=== PATIENT | female | born 1990 | race Caucasian/White ===

== ENCOUNTER 2023-01-25 11:10 | Outpatient (CLI) | payer OTHER, SELFPAY ==
[2023-01-25 12:25] LABS: Hematocrit 41.4 % (37.0-47.0); Hemoglobin 14.2 g/dL (12.0-15.0); Mean Corpuscular HGB Conc 34.3 g/dl (32-36); Mean Corpuscular Hemoglobin 32.1 pg (26-34); Mean Corpuscular Volume 93.7 fl (80-100); Mean Platelet Volume 11.6 fl (7.4-10.4); Platelet Count Result 255 k/mm3 (150-375); Red Blood Count 4.42 M/mm3 (4.2-5.4); White Blood Count 10.2 K/mm3 (4.5-10.0)
[2023-01-25 12:38] LABS: Alanine Aminotransferase 23 U/L (6-35); Albumin Level 4.5 g/dL (3.5-5.1); Alkaline Phosphatase 59 U/L (38-126); Anion Gap 6 mmol/L (8-16); Aspartate Amino Transferase 18 U/L (14-36); Bilirubin,Total 0.3 mg/dL (0.2-1.3); Blood Urea Nitrogen 10 mg/dL (7-17); CRP < 0.5 mg/dL (<1.0); Calcium 9.6 mg/dL (8.4-10.2); Carbon Dioxide 28 mmol/L (22-30); Chloride 102 mmol/L (98-107); Estimated Glomerular Filt Rate > 60; Glucose 99 mg/dL (65-110); Lipase 51 U/L (23-300); Potassium 3.8 mmol/L (3.4-5.0); Sodium 136 mmol/L (137-145)
[2023-01-25 13:48] LABS: Thyroid Stimulating Hormone Reflex 0.139 uIU/mL (0.465-4.68)
[2023-01-25 13:53] LABS: Erythrocyte Sedimentation Rate 6 mm/hr (0-20)
[2023-01-25 14:54] LABS: Free T4 Free Thyroxine Reflex 1.46 ng/dL (0.78-2.19)
[2023-01-25 16:20] LABS: Total Triiodothyronine (T3) 1.14 NG/ML (0.97-1.69)
[2023-01-29 15:19] LABS: Hepatitis C RNA, Quant PCR <15 IU/mL
[2023-01-31 04:16] LABS: Immunoglobulin A 40 mg/dL (47-310); TTG IGA AB <1.0 U/mL (<15.0); Tissue Transglutaminase IgG Ab <1.0 U/mL (<15.0)
== END 2023-01-25 11:11 | disposition home or self-care (01) ==
PROVIDERS: PCP Family Medicine; Visit Provider Nurse Practitioner
DX: R11.2 Nausea with vomiting, unspecified (principal); R10.13 Epigastric pain; G89.29 Other chronic pain; R19.7 Diarrhea, unspecified; R76.8 Other specified abnormal immunological findings in serum; R63.4 Abnormal weight loss
CPT/HCPCS: 36415; 80053; 82784; 83690; 84439; 84443; 84480; 85027; 85652; 86140; 86364; 87522; 99212; G0463

== ENCOUNTER 2023-01-29 14:14 | Outpatient (NON) | payer OTHER, SELFPAY ==
[2023-02-04 22:36] LABS: Calprotectin, Stool 398 mcg/g
[2023-02-07 19:37] LABS: Pancreatic Elastase, Stool >500 mcg/g
== END 2023-01-29 14:15 | disposition home or self-care (01) ==
LOC: ANHLAB 14:15
PROVIDERS: PCP Family Medicine; Visit Provider Nurse Practitioner
DX: G89.29 Other chronic pain (principal); R10.13 Epigastric pain; R11.2 Nausea with vomiting, unspecified; R19.7 Diarrhea, unspecified; R63.4 Abnormal weight loss
CPT/HCPCS: 82653; 83993; 87045; 87177; 87209; 87427; 87449

== ENCOUNTER 2023-02-25 16:36 | Emergency (ER) | payer OTHER, SELFPAY ==
--- NOTE | ~2023-02-25 | XR_ITS ---
EXAMINATION: XR ribs RT 2V w CXR 2V Exam Date/Time: 02/25/2023 18:32 CDT HISTORY: right sided rib pain/pulled muscle Comparison: None available. RESULT: Lines, tubes, and devices: None. Lungs and pleura: Clear. Cardiothymic silhouette: Normal. Other: No acute osseous or upper abdominal finding. IMPRESSION: No acute cardiopulmonary process. No acute osseous finding in the right ribs. Reviewed, dictated and finalized at location K.
[2023-02-25 16:40] VITALS: BP 127/75; PULSE 64; RESP 16; TEMP 36.6; O2SAT 96
[2023-02-25 16:44] VITALS: BP 101/62; PULSE 84; RESP 18; TEMP 36.4; O2SAT 98
--- NOTE | 2023-02-25 17:54 | ECG_ITS ---
Measurements Intervals [place] Rate: 73 P: 53 [place]: 146 QRS: 78 QRSD: 79 T: 64 QT: 349 QTc: 385 Interpretive Statements SINUS RHYTHM WITH SINUS ARRHYTHMIA BASELINE ARTIFACT- I, II, III, AVR, V1-V3 NORMAL ECG NO PREVIOUS ECG AVAILABLE FOR COMPARISON Electronically Signed On 02-25-2023 20:38:39 CDT by Jas Renae D.O.
--- NOTE | 2023-02-25 18:32 | ED.GENADULT ---
HPI - General Adult General Chief complaint: Unspecified Stated complaint: right sided rib pain Time Seen by Provider: 02/25/23 16:55 Source: patient Mode of arrival: ambulatory Limitations: no limitations History of Present Illness HPI narrative: This is a 33 year old female that presents to the ER for right sided chest pain. Reports an episode of sharp chest pain. Does report moving yesterday and thinks she may have pulled a muscle. Her pain was relieved without intervention. Denies fever, cough, shortness of breath or lower extremity edema. Related Data Home Medications Medication Instructions Recorded Confirmed bupropion HCl 150 mg 24 hr tablet, 150 mg PO BID 12/21/22 01/25/23 extended release clonidine HCl 0.3 mg tablet 0.3 mg PO DAILY 12/21/22 01/25/23 lamotrigine 100 mg tablet 100 mg PO DAILY 12/21/22 01/25/23 trazodone 150 mg tablet 150 mg PO QHS PRN Insomnia 12/21/22 01/25/23 albuterol sulfate 90 mcg/actuation 2 puff inhalation Q4H PRN 01/25/23 01/25/23 aerosol inhaler Shortness Of Breath clonazepam 0.5 mg tablet 0.5 mg PO BID PRN Anxiety 01/25/23 01/25/23 etonogestrel 0.12 mg-ethinyl 1 vag ring vaginal MONTHLY 01/25/23 01/25/23 estradiol 0.015 mg/24 hr vaginal ring (NuvaRing) methadone 40 mg soluble tablet 82 mg PO DAILY 01/25/23 01/25/23 sucralfate 1 gram tablet (Carafate) 1 g PO DAILY 01/25/23 01/25/23 Allergies Allergy/AdvReac Type Severity Reaction Status Date / Time Sulfa (Sulfonamide Allergy Mild Unknown Verified 02/25/23 16:50 Antibiotics) Review of Systems Review of Systems: CONSTITUTIONAL: Denies fever CARDIOVASCULAR: Reports chest/rib pain. Denies palpitations, or edema. RESPIRATORY: Denies cough or dyspnea. All systems reviewed & are unremarkable except as noted in HPI and below PMFSH Past Medical History Medical History (Updated 02/25/23 @ 19:21 by Kim Lucas PA-C) Abdominal pain, chronic, epigastric Diarrhea Hepatitis C antibody positive in blood History of methamphetamine abuse Marijuana abuse Methadone dependence Nausea and vomiting Weight loss Social History Social History Smoking packs per day: 0.5 Smoking cigarettes per day: 10.0 Years smoked: 15 Smoking pack-years: 7.50 Smoking status: Current every day smoker Tobacco type: cigarettes Substance use: former Substance use type: marijuana and methamphetamine Last use: daily Living arrangements: with family Spiritual care concerns: No Exam Narrative: GENERAL: Well-appearing, well-nourished, and in no acute distress. HEAD: Normocephalic, atraumatic. EYES: EOMI. CHEST: Clear to auscultation. No respiratory distress. No wheezes rales or rhonchi HEART: Regular rate and rhythm. No murmur heard. Normal peripheral pulses. ABDOMEN: Soft, nontender, nondistended, normal active bowel sounds. EXTREMITIES: Normal range of motion. No edema. SKIN: Warm, dry, no rash. NEURO: No focal deficits. Alert and oriented x3. PSYCH: Normal mood and affect Course Course Emergency Course: Patient was updated on work-up and agrees with plan of care Vital Signs Vital signs: Vital Signs Temperature 97.9 F 02/25/23 16:40 Pulse Rate 64 02/25/23 16:40 Respiratory Rate 16 02/25/23 16:40 Blood Pressure 127/75 02/25/23 16:40 Pulse Oximetry 96 02/25/23 16:40 Oxygen Delivery Room Air 02/25/23 16:40 Temperature 97.6 F 02/25/23 16:44 Pulse Rate 73 02/25/23 18:54 Respiratory Rate 18 02/25/23 18:54 Blood Pressure 114/79 02/25/23 18:54 Pulse Oximetry 97 02/25/23 18:54 Oxygen Delivery Room Air 02/25/23 16:44 Medical Decision Making [facility] Narrative Medical decision making narrative: Patient presents to the emergency department for right-sided rib/chest pain ongoing after moving yesterday. She is afebrile and nontoxic-appearing. Her vitals are stable. Oxygen saturation is normal on room air. CBC with mild leukocytosis to 13. Metabolic panel and li
[2023-02-25 18:54] VITALS: BP 114/79; PULSE 73; RESP 18; O2SAT 97
[2023-02-25 18:55] LABS: Basophils Percent Auto 0.3 % (0.2-1.2); Eosinophils Absolute Auto 0.1 K/mm3 (0-0.3); Hematocrit 40.6 % (37.0-47.0); Hemoglobin 13.8 g/dL (12.0-15.0); Immature Granulocyte Absolute 0.05 K/mm3 (0.00-0.031); Immature Granulocyte Percent A 0.4 % (0-0.5); Lymphocytes Absolute Auto 2.61 K/mm3 (0.9-3.2); Lymphocytes Percent Auto 20.1 % (18.3-44.2); Mean Corpuscular Hemoglobin 31.7 pg (26-34); Mean Corpuscular Volume 93.3 fl (80-100); Mean Platelet Volume 10.9 fl (7.4-10.4); Monocytes Absolute Auto 0.8 K/mm3 (0.1-0.6); Monocytes Percent Auto 5.9 % (2.6-8.5); Neutrophils Absolute Auto 9.4 K/mm3 (1.3-6.7); Neutrophils Percent Auto 72.3 % (45.5-73.1); Platelet Count Result 254 k/mm3 (150-375); Red Blood Count 4.35 M/mm3 (4.2-5.4); Red Cell Distribution Width 12.5 % (11.5-14.5)
[2023-02-25 19:09] LABS: Prothrombin Time 13.9 Seconds (11.1-14.7)
[2023-02-25 19:10] LABS: Partial Thromboplastin Time 28.3 SECONDS (22.3-36.8)
[2023-02-25 19:12] LABS: Alanine Aminotransferase 19 U/L (6-35); Albumin Level 4.4 g/dL (3.5-5.1); Alkaline Phosphatase 59 U/L (38-126); Anion Gap 6 mmol/L (8-16); Aspartate Amino Transferase 27 U/L (14-36); Bilirubin,Total 0.5 mg/dL (0.2-1.3); Blood Urea Nitrogen 15 mg/dL (7-17); Calcium 9.7 mg/dL (8.4-10.2); Carbon Dioxide 28 mmol/L (22-30); Chloride 103 mmol/L (98-107); Estimated CRCL calculation 67 ml/min; Estimated Glomerular Filt Rate > 60; Glucose 93 mg/dL (65-110); Lipase 52 U/L (23-300); Potassium 3.6 mmol/L (3.4-5.0); Sodium 137 mmol/L (137-145)
[2023-02-25 19:23] LABS: Troponin I < 0.012 ng/mL (0.000-0.034)
[2023-02-25 19:27] VITALS: BP 129/72; PULSE 77; RESP 15; TEMP 36.6; O2SAT 100
== END 2023-02-25 19:29 | disposition home or self-care (01) ==
PROVIDERS: Emergency Provider Physician Assistant; PCP Family Medicine
DX: R07.81 Pleurodynia (principal); F17.210 Nicotine dependence, cigarettes, uncomplicated
CPT/HCPCS: 36415; 71046; 71100; 80053; 81025; 83690; 84484; 85025; 85610; 85730; 93005; 99284

== ENCOUNTER 2023-03-11 15:11 | Emergency (ER) | payer OTHER, SELFPAY ==
--- NOTE | ~2023-03-11 | XR_ITS ---
EXAM: XR hand LT min 3V DATE: 03/11/2023 16:57 HISTORY: pain, DOG BITE to left distal 4th digit . COMPARISON: None available. FINDINGS: Normal mineralization. No fracture or dislocation. No lytic or blastic lesion. Joint space s are maintained. No erosion or periosteal change. Soft tissues within normal limits. IMPRESSION: No acute osseous finding in the left hand. Reviewed, dictated and finalized at location K.
--- NOTE | ~2023-03-11 | XR_ITS ---
EXAM: XR finger 4th RT min 2V DATE: 03/11/2023 15:51 HISTORY: dog bite to right 4th distal digit- best obtainable images . COMPARISON: None available. FINDINGS: Normal mineralization. No fracture or dislocation. No lytic or blastic lesion. Joint space s and physes are maintained. No erosion or periosteal change. Soft tissue irregularity over the anter ior aspect of the distal right digit. IMPRESSION: No acute osseous finding in the right fourth digit. Reviewed, dictated and finalized at location K.
[2023-03-11 15:20] VITALS: BP 104/53; PULSE 94; RESP 18; TEMP 37.3; O2SAT 100
[2023-03-11] MEDS: NAPROXEN 500 MG TABLET PO (16:37)
[2023-03-11] MEDS: HYDROcodone/acetaminophen (*CRX) 5-325 MG TABLET 1 TAB PO (16:37)
[2023-03-11] MEDS: TETANUS,DIPHTHERIA,AC PERTUSSIS ADULT (0.5 ML) BOOSTRIX IM (17:16)
--- NOTE | 2023-03-11 17:28 | ED.GENADULT ---
HPI - General Adult General Chief complaint: Animal Bite Stated complaint: dog bite - bilat hand Time Seen by Provider: 03/11/23 15:40 History of Present Illness HPI narrative: Mirela Damon is a 33 y/o female who presents today after breaking up a fight between her two dogs. She states her dogs are up to date on their shots but she has several small puncture/superficial cuts to both hands. Patient complains of severe pain to both of her hands and is very upset, she is not sure when her last Tdap was. Related Data Home Medications Medication Instructions Recorded Confirmed bupropion HCl 150 mg 24 hr tablet, 150 mg PO BID 12/21/22 03/01/23 extended release clonidine HCl 0.3 mg tablet 0.3 mg PO DAILY 12/21/22 03/01/23 lamotrigine 100 mg tablet 100 mg PO DAILY 12/21/22 03/01/23 trazodone 150 mg tablet 150 mg PO QHS PRN Insomnia 12/21/22 03/01/23 albuterol sulfate 90 mcg/actuation 2 puff inhalation Q4H PRN 01/25/23 03/01/23 aerosol inhaler Shortness Of Breath clonazepam 0.5 mg tablet 0.5 mg PO BID PRN Anxiety 01/25/23 03/01/23 etonogestrel 0.12 mg-ethinyl 1 vag ring vaginal MONTHLY 01/25/23 03/01/23 estradiol 0.015 mg/24 hr vaginal ring (NuvaRing) methadone 40 mg soluble tablet 82 mg PO DAILY 01/25/23 03/01/23 sucralfate 1 gram tablet (Carafate) 1 g PO DAILY 01/25/23 03/01/23 Allergies Allergy/AdvReac Type Severity Reaction Status Date / Time Sulfa (Sulfonamide Allergy Mild Unknown Verified 03/11/23 15:35 Antibiotics) Review of Systems Review of Systems: CONSTITUTIONAL: Denies fever, chills, or sweats. EYES: Denies visual changes, redness, or discharge. ENT: Denies rhinorrhea, congestion, sore throat, or otalgia. CARDIOVASCULAR: Denies chest pain, palpitations, or edema. RESPIRATORY: Denies cough or dyspnea. GASTROINTESTINAL: Denies abdominal pain, nausea, vomiting, or diarrhea. GENITOURINARY: Denies dysuria or hematuria. SKIN: Denies rash or itching. MUSCULOSKELETAL: Denies back pain, complains of pain to both hands with several small wounds from the dog bites. NEUROLOGIC: Denies headache, numbness, dizziness, or weakness. PSYCHIATRIC: Denies anxiety or depression. PMFSH Past Medical History Medical History Abdominal pain, chronic, epigastric Diarrhea Hepatitis C antibody positive in blood History of methamphetamine abuse Marijuana abuse Methadone dependence Nausea and vomiting Weight loss Social History Social History Smoking packs per day: 0.5 Smoking cigarettes per day: 10.0 Years smoked: 15 Smoking pack-years: 7.50 Smoking status: Current every day smoker Tobacco type: cigarettes Substance use: former Substance use type: marijuana and methamphetamine Last use: daily Living arrangements: with family Exam Narrative: GENERAL: Well-appearing, well-nourished, and in no acute distress. HEAD: Normocephalic, atraumatic. EYES: PERRLA and EOMI. ENT: Nares clear, no rhinorrhea or epistaxis. Mucous membranes moist. Oropharynx without tonsillar hypertrophy exudate or other lesions. Bilateral TMs pearly hale nonbulging NECK: Supple. No adenopathy or masses. No carotid bruits or JVD CHEST: Clear to auscultation. No respiratory distress. No wheezes rales or rhonchi HEART: Regular rate and rhythm. No murmur heard. Normal peripheral pulses. ABDOMEN: Soft, nontender, nondistended, normal active bowel sounds. EXTREMITIES: Normal range of motion. Patient with superficial cuts to to several areas to her hands and a laceration to the the pad of her right fourth phalanx and small cut in the web between her fourth and fifth phalanx on the right hand. superficial cuts and ecchymosis noted to the dorsum of her left hand. SKIN: Warm, dry, no rash. NEURO: No focal deficits. Alert and oriented x3. PSYCH: Normal mood and affect. Course Vital Signs Vital signs: Vital Signs Tem
== END 2023-03-11 17:55 | disposition home or self-care (01) ==
PROVIDERS: Emergency Provider Nurse Practitioner Family; PCP Family Medicine
DX: S61.452A Open bite of left hand, initial encounter (principal); S61.451A Open bite of right hand, initial encounter; S61.254A Open bite of right ring finger without damage to nail, initial encounter; Z23 Encounter for immunization; F17.210 Nicotine dependence, cigarettes, uncomplicated; W54.0XXA Bitten by dog, initial encounter
CPT/HCPCS: 73130; 73140; 90471; 90715; 99283; A9270

== ENCOUNTER 2023-08-17 19:21 | Emergency (ER) | payer OTHER, SELFPAY ==
--- NOTE | 2023-08-17 19:35 | ED.EYEPROB ---
HPI - Eye Problem General Chief complaint: Eye Problems Stated complaint: Right Eye Irritation Time Seen by Provider: 08/17/23 19:35 Source: patient Mode of arrival: ambulatory Limitations: no limitations History of Present Illness HPI Narrative: Mirela is a 33-year-old female patient presenting to the clinic today with complaints of right eye irritation after having an eyelash in her right eye. He is unaware if she the eyelashes still in her eye at this time but is stating that she thinks it is in is annoying. Denies any eye pain or watering Related Data Home Medications Medication Instructions Recorded Confirmed bupropion HCl 150 mg 24 hr tablet, 150 mg PO BID 12/21/22 03/01/23 extended release clonidine HCl 0.3 mg tablet 0.3 mg PO DAILY 12/21/22 03/01/23 lamotrigine 100 mg tablet 100 mg PO DAILY 12/21/22 03/01/23 trazodone 150 mg tablet 150 mg PO QHS PRN Insomnia 12/21/22 03/01/23 albuterol sulfate 90 mcg/actuation 2 puff inhalation Q4H PRN 01/25/23 03/01/23 aerosol inhaler Shortness Of Breath clonazepam 0.5 mg tablet 0.5 mg PO BID PRN Anxiety 01/25/23 03/01/23 etonogestrel 0.12 mg-ethinyl 1 vag ring vaginal MONTHLY 01/25/23 03/01/23 estradiol 0.015 mg/24 hr vaginal ring (NuvaRing) methadone 40 mg soluble tablet 82 mg PO DAILY 01/25/23 03/01/23 sucralfate 1 gram tablet (Carafate) 1 g PO DAILY 01/25/23 03/01/23 Allergies Allergy/AdvReac Type Severity Reaction Status Date / Time Sulfa (Sulfonamide Allergy Mild Unknown Verified 08/17/23 19:23 Antibiotics) Review of Systems Review of Systems: Pertinent positives per HPI. Patient denies any fever, chills, rash, headache, visual changes, dizziness, cough, runny nose, sore throat, shortness of breath, chest pain, palpitations, nausea, vomiting, diarrhea, constipation, abdominal pain, or any urinary issues. [facility] Past Medical History Medical History Abdominal pain, chronic, epigastric Diarrhea Hepatitis C antibody positive in blood History of methamphetamine abuse Marijuana abuse Methadone dependence Nausea and vomiting Weight loss Social History Social History Smoking packs per day: 0.5 Smoking cigarettes per day: 10.0 Years smoked: 15 Smoking pack-years: 7.50 Smoking status: Current every day smoker Tobacco type: cigarettes Substance use: former Substance use type: marijuana and methamphetamine Last use: daily Living arrangements: with family Comments At the time of my signature, I reviewed and agree with the nursing past medical, surgical, social, and family history. There is no relevant family history pertinent to the patient complaint. Exam Narrative: General: Well-developed, well nourished, in no apparent distress Head: Normocephalic, atraumatic Eyes: Pupils equally round and reactive to light bilaterally, EOM intact, right sclera and conjunctive clear, no discharge, lids normal, left sclera and conjunctiva mildly injected, no discharge, eye wash irrigation was performed, no obvious foreign body seen in the right eye, lids normal Ears: TMs intact and clear, ear canals clear, no drainage, grossly hearing normal. Nose: Nares patent, no discharge, no inflammation, no sinus tenderness. Mouth: Oropharynx without lesions or masses, good dentition, MMM. Neck: Supple, trachea midline, no enlargement of anterior or posterior cervical nodes, no thyroid masses or goiter palpable. Cardio: Regular rate and rhythm, s1 and s2 normal, no murmur appreciated. Resp: Clear to auscultation bilaterally anteriorly and posteriorly, no rhonchi, rales, wheezing or rubs Course Course Emergency Course: Portions of this record may have been created with voice recognition software. Level of Care: Express Care Visit Vital Signs Vital signs: Vital signs reviewed MDM - Eye Problem MDM Narrative Medical decisi
[2023-08-17 19:36] VITALS: BP 117/75; PULSE 97; RESP 16; TEMP 36.6; O2SAT 99
== END 2023-08-17 19:45 | disposition home or self-care (01) ==
PROVIDERS: Emergency Provider Nurse Practitioner Family; PCP Family Medicine
DX: H57.11 Ocular pain, right eye (principal); F17.210 Nicotine dependence, cigarettes, uncomplicated
CPT/HCPCS: 99213; A9270; G0463

== ENCOUNTER 2024-01-27 19:44 | Emergency (ER) | payer OTHER, SELFPAY ==
[2024-01-27 19:52] VITALS: BP 146/72; PULSE 106; RESP 16; TEMP 36.9; O2SAT 99
--- NOTE | 2024-01-27 19:53 | ED.GENADULT ---
HPI - General Adult General Chief complaint: Urogenital-Female Stated complaint: red,painful vaginal area Source: patient Mode of arrival: ambulatory Limitations: no limitations History of Present Illness HPI narrative: patient presents for evaluation of redness and discomfort to both the inner aspect of her right labia. She indicates she had receptive vaginal intercourse yesterday. She believes her symptoms are related to rough sex . She denies any vaginal discharge. She has a NuvaRing. She denies any fever, chills, nausea, vomiting, vaginal bleeding or urinary symptoms. She states she had STI testing a few weeks ago and everything was negative. Related Data Home Medications Medication Instructions Recorded Confirmed bupropion HCl 150 mg 24 hr tablet, 150 mg PO BID 12/21/22 03/01/23 extended release clonidine HCl 0.3 mg tablet 0.3 mg PO DAILY 12/21/22 03/01/23 lamotrigine 100 mg tablet 100 mg PO DAILY 12/21/22 03/01/23 trazodone 150 mg tablet 150 mg PO QHS PRN Insomnia 12/21/22 03/01/23 albuterol sulfate 90 mcg/actuation 2 puff inhalation Q4H PRN 01/25/23 03/01/23 aerosol inhaler Shortness Of Breath clonazepam 0.5 mg tablet 0.5 mg PO BID PRN Anxiety 01/25/23 03/01/23 etonogestrel 0.12 mg-ethinyl 1 vag ring vaginal MONTHLY 01/25/23 03/01/23 estradiol 0.015 mg/24 hr vaginal ring (NuvaRing) methadone 40 mg soluble tablet 82 mg PO DAILY 01/25/23 03/01/23 sucralfate 1 gram tablet (Carafate) 1 g PO DAILY 01/25/23 03/01/23 Allergies Allergy/AdvReac Type Severity Reaction Status Date / Time Sulfa (Sulfonamide Allergy Mild Unknown Verified 01/27/24 19:54 Antibiotics) Review of Systems Review of Systems: CONSTITUTIONAL: Denies fever, chills, or sweats. EYES: Denies visual changes, redness, or discharge. ENT: Denies rhinorrhea, congestion, sore throat, or otalgia. CARDIOVASCULAR: Denies chest pain, palpitations, or edema. RESPIRATORY: Denies cough or dyspnea. GASTROINTESTINAL: Denies abdominal pain, nausea, vomiting, or diarrhea. GENITOURINARY: Reports discomfort to right inner labia. Denies dysuria or hematuria. SKIN: Reports redness to right inner labia. MUSCULOSKELETAL: Denies back pain, joint pain, or myalgia. NEUROLOGIC: Denies headache, numbness, dizziness, or weakness. PSYCHIATRIC: Denies anxiety or depression. [facility] Past Medical History Medical History (Updated 01/27/24 @ 20:04 by LIS Santana, KRISTINE) Abdominal pain, chronic, epigastric Diarrhea Hepatitis C antibody positive in blood History of methamphetamine abuse Marijuana abuse Methadone dependence Nausea and vomiting Weight loss Surgical History Surgical History No pertinent past surgical history Family History Family History Mother Family history non-contributory Social History Social History Smoking packs per day: 0.5 Smoking cigarettes per day: 10.0 Years smoked: 15 Smoking pack-years: 7.50 Smoking status: Current every day smoker Tobacco type: cigarettes Substance use: former Substance use type: marijuana and methamphetamine Last use: daily Living arrangements: with family Exam Narrative: GENERAL: Well-appearing, well-nourished, and in no acute distress. HEAD: Normocephalic, atraumatic. EYES: PERRLA and EOMI. ENT: Nares clear, no rhinorrhea or epistaxis. Mucous membranes moist. Oropharynx without tonsillar hypertrophy exudate or other lesions. Bilateral TMs pearly hale nonbulging NECK: Supple. No adenopathy or masses. No carotid bruits or JVD CHEST: Clear to auscultation. No respiratory distress. No wheezes rales or rhonchi HEART: Regular rate and rhythm. No murmur heard. Normal peripheral pulses. ABDOMEN: Soft, nontender, nondistended, normal active bowel sounds. EXTREMITIES: Normal range of motio
[2024-01-27 19:55] VITALS: BP 146/72; PULSE 106; RESP 16; TEMP 36.9; O2SAT 99
[2024-01-28 21:34] LABS: Chlamydia trachomatis NOT DETECTED (NOT DETECTE); Neisseria gonorrhoeae PCR NOT DETECTED (NOT DETECTE)
[2024-01-29 15:23] LABS: Bacterial Vaginosis NEGATIVE (NEGATIVE)
[2024-01-31 15:42] LABS: Source NOT GIVEN
== END 2024-01-27 20:13 | disposition home or self-care (01) ==
PROVIDERS: Emergency Provider Nurse Practitioner; PCP Nurse Practitioner Family
DX: R10.2 Pelvic and perineal pain (principal); F17.210 Nicotine dependence, cigarettes, uncomplicated
CPT/HCPCS: 81513; 87255; 87491; 87591; 99213; G0463

== ENCOUNTER 2024-02-14 19:27 | Emergency (ER) | payer OTHER, SELFPAY ==
--- NOTE | 2024-02-14 19:28 | ED.URI ---
HPI - URI/Sore Throat General Chief Complaint: Upper Respiratory Infection Stated Complaint: cough,congestion,runny nose Time Seen by Provider: 02/14/24 19:27 Source: patient Mode of arrival: ambulatory Limitations: no limitations History of Present Illness HPI Narrative: Dena is a 34-year-old female patient presenting to the clinic today with complaints of cough, congestion, and runny nose x3 weeks. She reports she is blowing out green nasal drainage and coughing up green phlegm. Has a lot of sinus pressure and chest congestion. No known fever or chills. Denies any shortness of breath currently. MD elicited complaint: cough, rhinorrhea, nasal congestion, sinus pain and other Related Data Home Medications Medication Instructions Recorded Confirmed bupropion HCl 150 mg 24 hr tablet, 150 mg PO BID 12/21/22 02/14/24 extended release clonidine HCl 0.3 mg tablet 0.3 mg PO DAILY 12/21/22 02/14/24 lamotrigine 100 mg tablet 100 mg PO DAILY 12/21/22 02/14/24 trazodone 150 mg tablet 150 mg PO QHS PRN Insomnia 12/21/22 02/14/24 albuterol sulfate 90 mcg/actuation 2 puff inhalation Q4H PRN 01/25/23 02/14/24 aerosol inhaler Shortness Of Breath clonazepam 0.5 mg tablet 0.5 mg PO BID PRN Anxiety 01/25/23 02/14/24 etonogestrel 0.12 mg-ethinyl 1 vag ring vaginal MONTHLY 01/25/23 03/01/23 estradiol 0.015 mg/24 hr vaginal ring (NuvaRing) methadone 40 mg soluble tablet 82 mg PO DAILY 01/25/23 02/14/24 sucralfate 1 gram tablet (Carafate) 1 g PO DAILY 01/25/23 02/14/24 Allergies Allergy/AdvReac Type Severity Reaction Status Date / Time Sulfa (Sulfonamide Allergy Mild Unknown Verified 02/14/24 19:41 Antibiotics) Review of Systems Review of Systems: Pertinent positives per HPI. Patient denies any fever, chills, rash, headache, visual changes, dizziness, shortness of breath, chest pain, palpitations, nausea, vomiting, diarrhea, constipation, abdominal pain, or any urinary issues. [facility] Past Medical History Medical History Abdominal pain, chronic, epigastric Diarrhea Hepatitis C antibody positive in blood History of methamphetamine abuse Marijuana abuse Methadone dependence Nausea and vomiting Weight loss Surgical History Surgical History No pertinent past surgical history Family History Family History Mother Family history non-contributory Social History Social History Smoking packs per day: 0.5 Smoking cigarettes per day: 10.0 Years smoked: 15 Smoking pack-years: 7.50 Smoking status: Current every day smoker Tobacco type: cigarettes Substance use: former Substance use type: marijuana and methamphetamine Last use: daily Living arrangements: with family Comments At the time of my signature, I reviewed and agree with the nursing past medical, surgical, social, and family history. There is no relevant family history pertinent to the patient complaint. Exam Narrative: General: Well-developed, well nourished, in no apparent distress Head: Normocephalic, atraumatic Eyes: Pupils equally round and reactive to light bilaterally, EOM intact, sclera and conjunctive clear, no discharge, lids normal Ears: TMs intact and clear, ear canals clear, no drainage, grossly hearing normal. Nose: Nares patent, green nasal discharge, moderate inflammation, maxillary sinus tenderness. Mouth: Oral pharynx red without lesions or masses, good dentition, MMM. Neck: Supple, trachea midline, no enlargement of anterior or posterior cervical nodes, no thyroid masses or goiter palpable. Cardio: Regular rate and rhythm, s1 and s2 normal, no murmur appreciated. Resp: Expiratory wheezing, no rhonchi, rales, or rubs Course Course Emergency Course: Portions of this record
[2024-02-14 19:37] VITALS: BP 124/86; PULSE 103; RESP 15; TEMP 37.2; O2SAT 96
== END 2024-02-14 19:53 | disposition home or self-care (01) ==
LOC: EXPCOLL 19:30
PROVIDERS: Emergency Provider Nurse Practitioner Family; PCP Nurse Practitioner Family
DX: J32.9 Chronic sinusitis, unspecified (principal); J40 Bronchitis, not specified as acute or chronic; F17.210 Nicotine dependence, cigarettes, uncomplicated
CPT/HCPCS: 99213; G0463

== ENCOUNTER 2024-02-24 16:59 | Emergency (ER) | payer OTHER, SELFPAY | END 2024-02-24 17:32 | disposition left against medical advice (07) | LOC: EXPCOLL 17:01 | PROVIDERS: Emergency Provider Nurse Practitioner; PCP Nurse Practitioner Family | DX: Z53.21 Procedure and treatment not carried out due to patient leaving prior to being seen by health care provider (principal) | CPT/HCPCS: 99199 ==

== ENCOUNTER 2024-05-13 15:32 | Emergency (ER) | payer OTHER, SELFPAY ==
--- NOTE | ~2024-05-13 | XR_ITS ---
XR chest 2V Ordering provider: Elizabeth Calles APRN History: 34 years Female with . cough X 2 months . Comparison: None. FINDINGS: MEDIASTINUM: The cardiac silhouette is not enlarged. LUNGS: No infiltrates, effusions or pneumothorax. OTHER: No free air under the diaphragm. IMPRESSION: No acute cardiopulmonary pathology. Reviewed, dictated and finalized at location [facility] [employer] [facility]
[2024-05-13 15:59] VITALS: BP 123/83; PULSE 104; RESP 16; TEMP 37.2; O2SAT 96
--- NOTE | 2024-05-13 16:44 | ED_ITS ---
HPI - URI/Sore Throat General Chief Complaint: Upper Respiratory Infection Stated Complaint: cough,chest congestion Time Seen by Provider: 05/13/24 16:47 Source: patient, RN notes reviewed and old records reviewed Mode of arrival: ambulatory Limitations: no limitations History of Present Illness HPI Narrative: Patient presents with 2 month history of congested cough and URI symptoms. She reports that she was treated at the onset of her symptoms with a Z-Akhil. States that she felt better for a little while, but then symptoms came back. She reports cough has become more productive. States she has had a low-grade fever fairly consistently. She has been taking NyQuil with moderate results. She is not in any respiratory distress, but she does report occasional wheezing. Reports multiple sick contacts Related Data Home Medications ?Medication ?Instructions ?Recorded ?Confirmed ?Last Taken ?Type bupropion HCl 150 mg 24 hr tablet, 150 mg PO BID 12/21/22 05/13/24 Unknown History extended release clonidine HCl 0.3 mg tablet 0.3 mg PO DAILY 12/21/22 02/14/24 Unknown History lamotrigine 100 mg tablet 100 mg PO DAILY 12/21/22 02/14/24 Unknown History trazodone 150 mg tablet 150 mg PO QHS PRN Insomnia 12/21/22 02/14/24 Unknown History albuterol sulfate 90 mcg/actuation 2 puff inhalation Q4H PRN 01/25/23 02/14/24 Unknown History aerosol inhaler Shortness Of Breath clonazepam 0.5 mg tablet 0.5 mg PO BID PRN Anxiety 01/25/23 02/14/24 Unknown History etonogestrel 0.12 mg-ethinyl 1 vag ring vaginal MONTHLY 01/25/23 03/01/23 Unknown History estradiol 0.015 mg/24 hr vaginal ring (NuvaRing) methadone 40 mg soluble tablet 82 mg PO DAILY 01/25/23 02/14/24 Unknown History famotidine 20 mg tablet mg 05/13/24 Unknown History Allergies Allergy/AdvReac Type Severity Reaction Status Date / Time Sulfa (Sulfonamide Allergy Mild Unknown Verified 05/13/24 16:37 Antibiotics) Review of Systems Review of Systems: All systems reviewed & are unremarkable except as noted in HPI and below Constitutional: Constitutional: Reports no additional constitutional complaints, Reports body ache(s), Reports chills, Reports fever(s) and Reports headache(s) ENT: Reports system reviewed and no additional complaints, except as documented, Reports otalgia, Reports nasal congestion and Reports sore throat Cardiovascular: Cardiovascular: Reports no additional cardiovascular complaints Respiratory: Respiratory: Reports no additional respiratory complaints, Reports change in phlegm color, Reports chest congestion, Reports cough, Reports excessive phlegm production and Reports wheezing Gastrointestinal: Gastrointestinal: Reports no additional gastrointestinal complaints PMFSH Past Medical History Medical History Abdominal pain, chronic, epigastric Diarrhea Hepatitis C antibody positive in blood History of methamphetamine abuse Marijuana abuse Methadone dependence Nausea and vomiting Weight loss Surgical History Surgical History No pertinent past surgical history Family History Family History Mother Family history non-contributory Social History Social History Smoking packs per day: 0.5 Smoking cigarettes per day: 10.0 Years smoked: 15 Smoking pack-years: 7.50 Smoking status: Current every day smoker Tobacco type: cigarettes Substance use: former Substance use type: marijuana and methamphetamine Last use: daily Living arrangements: with family Exam Const: General: cooperative, no acute distress, alert and awake Orientation/consciousness: oriented to person, oriented to place and oriented to time HENMT: Head: normal to inspection Ears: TM's normal bilaterally Mouth: Yes moist mucous membranes Throat: posterior oropharynx abnormal erythema and postnasal drainage Resp: Effort & Inspection: normal respiratory effort and able to speak in complete sentences Auscultation: clear to auscultation bilaterally, crackles on the left at the base, no rales, no rhonchi and no wheezes Cardio: Palpation: normal PMI Rate: regular rate Rhythm: regular rhythm Heart sounds: S1 normal heart sound present and S2 normal heart sound present Neuro: General: oriented to person, oriented to place and oriented to time Cranial nerves: Yes CN's II-XII intact bilaterally Psych: Appearance: grossly normal Thought process: Normal thought process present Insight: Good insight present (Psych) Judgement: Good judgement present (Psych) Course Course Level of Care: Express Care Visit Vital Signs Vital signs: Vital Signs Temperature 99 F 05/13/24 15:59 Pulse Rate 104 H 05/13/24 15:59 Respiratory Rate 16 05/13/24 15:59 Blood Pressure 123/83 05/13/24 15:59 Pulse Oximetry 96 05/13/24 15:59 Oxygen Delivery Room Air 05/13/24 15:59 Temperature 99 F 05/13/24 15:59 Pulse Rate 104 H 05/13/24 15:59 Respiratory Rate 16 05/13/24 15:59 Blood Pressure 123/83 05/13/24 15:59 Pulse Oximetry 96 05/13/24 15:59 Oxygen Delivery Room Air 05/13/24 15:59 MDM - URI/Sore Throat MDM Narrative Medical decision making narrative: Patient sick for 2 months, multiple sick contacts. No acute findings on x-ray. Symptoms and physical exam consistent with atypical pneumonia that is prevalent within the community at this time. Treat as such. Patient is nontoxic appearing and stable for discharge home on p.o. antibiotic therapy. At bronchodilator and steroid burst. Discharge instructions reviewed with patient, as well as provided in writing per nursing staff. The instructions also include specific and strict return/GO TO THE ER as well as f/u information. All questions have been answered, and the patient deny any further questions with discharge and discharge plan. Some parts of this dictation were generated by voice recognition software and may contain typographical and/or grammatical inaccuracies. Differential Diagnosis Differential diagnosis: Likely upper respiratory infection, otitis media, sinusitis and bronchitis Medical Records Attestation: I reviewed the patient's medical records. Imaging Data My impression: No acute process noted Radiologist's impression: [facility] [address] [place] [address] XRay Report Signed Patient: Mirela Damon : 1990 MR#: [id number] Age: 34 Acct:[id number] Loc: [facility] ADM Date: 05/13/24Attending Dr: Ordering Physician: Elizabeth Calles FNP Date of Service: 05/13/24 Procedure(s): XR chest 2V Accession Number(s): [id number] cc: Elizabeth Calles FNP; UNKNOWN,DOCTOR~ XR chest 2V Ordering provider: Elizabeth Calles APRN History: 34 years Female with . cough X 2 months . Comparison: None. FINDINGS: MEDIASTINUM: The cardiac silhouette is not enlarged. LUNGS: No infiltrates, effusions or pneumothorax. OTHER: No free air under the diaphragm. IMPRESSION: No acute cardiopulmonary pathology. Reviewed, dictated and finalized at location [facility] [employer] Dictated By: Osiel Arnold MD 05/13/24 1636 Signed By: <Electronically signed by Osiel Arnold MD in OV> 05/13/24 1637 Discharge Plan Discharge Clinical Impression: Atypical pneumonia Patient Disposition: Home, Self-Care Condition: Stable Instructions: Antibiotic Form, Pneumonia (ED) Additional Instructions: Take medications as prescribed. Follow with primary care provider. Emergency department for new or worse symptoms Patient Language: Libyan Prescriptions: New azithromycin 250 mg tablet See Rx Instructions .ROUTE .COMPLEX Qty: 6 0RF Rx Instructions: For 250 mg dose pack: take 500 mg today (day 1), then 250 mg for 4 days (days 2-5) prednisone 50 mg tablet 50 mg PO DAILY Qty: 5 0RF albuterol sulfate [Ventolin HFA] 90 mcg/actuation HFA aerosol inhaler 2 puff inhalation QID PRN (Reason: shortness of breath or wheezing) Qty: 8.5 0RF azithromycin 250 mg tablet See Rx Instructions .ROUTE .COMPLEX Qty: 6 0RF Rx Instructions: For 250 mg dose pack: take 500 mg today (day 1), then 250 mg for 4 days (days 2-5) prednisone 50 mg tablet 50 mg PO DAILY Qty: 5 0RF albuterol sulfate [Ventolin HFA] 90 mcg/actuation HFA aerosol inhaler 2 puff inhalation QID PRN (Reason: shortness of breath or wheezing) Qty: 8.5 0RF azithromycin 250 mg tablet See Rx Instructions .ROUTE .COMPLEX Qty: 6 0RF Rx Instructions: For 250 mg dose pack: take 500 mg today (day 1), then 250 mg for 4 days (days 2-5) prednisone 50 mg tablet 50 mg PO DAILY Qty: 5 0RF albuterol sulfate [Ventolin HFA] 90 mcg/actuation HFA aerosol inhaler 2 puff inhalation QID PRN (Reason: shortness of breath or wheezing) Qty: 8.5 0RF No Action albuterol sulfate 90 mcg/actuation HFA aerosol inhaler 2 puff inhalation Q4-6H PRN (Reason: shortness of breath or wheezing) 30 Days Qty: 8.5 0RF amoxicillin-pot clavulanate 875-125 mg tablet 1 tablet PO Q12H 10 Days Qty: 20 0RF famotidine 20 mg tablet trazodone 150 mg tablet 150 mg PO QHS PRN (Reason: Insomnia) bupropion HCl 150 mg tablet extended release 24 hr 150 mg PO BID lamotrigine 100 mg tablet 100 mg PO DAILY clonidine HCl 0.3 mg tablet 0.3 mg PO DAILY clonazepam 0.5 mg tablet 0.5 mg PO BID PRN (Reason: Anxiety) methadone 40 mg Tablet,Soluble 82 mg PO DAILY albuterol sulfate 90 mcg/actuation HFA aerosol inhaler 2 puff INHALATION Q4H PRN (Reason: Shortness Of Breath) etonogestrel-ethinyl estradiol [NuvaRing] 0.12-0.015 mg/24 hr Ring 1 vag ring VAGINAL MONTHLY pantoprazole 40 mg tablet,delayed release (DR/EC) 40 mg PO BID Qty: 60 3RF Follow-up/Referrals: UNKNOWN,DOCTOR [Primary Care Provider] - 2 Weeks Time of Disposition: 17:03
== END 2024-05-13 17:30 | disposition home or self-care (01) ==
PROVIDERS: Emergency Provider Nurse Practitioner Family
DX: J18.9 Pneumonia, unspecified organism (principal); F17.210 Nicotine dependence, cigarettes, uncomplicated
CPT/HCPCS: 71046; 99213; G0463

== ENCOUNTER 2024-07-03 16:06 | Emergency (ER) | payer OTHER, SELFPAY ==
--- NOTE | 2024-07-03 16:17 | ED_ITS ---
HPI - URI/Sore Throat General Chief Complaint: Upper Respiratory Infection Stated Complaint: throat hurts right side Time Seen by Provider: 07/03/24 16:14 Source: patient Mode of arrival: ambulatory Limitations: no limitations History of Present Illness HPI Narrative: Patient is a 34-year-old female presents with 3 days of fatigue, body ache, decreased appetite, chills and nausea. Patient states sore throat started last night. Patient has taken 1 dose of Tylenol along with her methadone to help with pain. Declined COVID testing. Related Data Home Medications ?Medication ?Instructions ?Recorded ?Confirmed ?Last Taken ?Type bupropion HCl 150 mg 24 hr tablet, 150 mg PO BID 12/21/22 07/03/24 Unknown History extended release clonidine HCl 0.3 mg tablet 0.3 mg PO DAILY 12/21/22 07/03/24 Unknown History lamotrigine 100 mg tablet 100 mg PO DAILY 12/21/22 07/03/24 Unknown History trazodone 150 mg tablet 150 mg PO QHS PRN Insomnia 12/21/22 07/03/24 Unknown History clonazepam 0.5 mg tablet 0.5 mg PO BID PRN Anxiety 01/25/23 07/03/24 Unknown History etonogestrel 0.12 mg-ethinyl 1 vag ring vaginal MONTHLY 01/25/23 07/03/24 U nknown History estradiol 0.015 mg/24 hr vaginal ring (NuvaRing) methadone 40 mg soluble tablet 82 mg PO DAILY 01/25/23 07/03/24 Unknown History Allergies Allergy/AdvReac Type Severity Reaction Status Date / Time Sulfa (Sulfonamide Allergy Mild Unknown Verified 07/03/24 16:15 Antibiotics) Review of Systems Review of Systems: All systems reviewed & are unremarkable except as noted in HPI and below Constitutional: Constitutional: Reports body ache(s), Reports chills, Reports fatigue, Denies fever(s), Denies headache(s), Denies malaise and Denies weakness Eyes: Eyes: Denies blurry vision, Denies itchy eyes and Denies loss of vision ENT: Denies otalgia, Denies headache(s), Denies nasal congestion, Denies sinus pain and Reports sore throat Cardiovascular: Cardiovascular: Denies chest pain, Denies irregular heart rhythm and Denies dyspnea Respiratory: Respiratory: Denies cough and Denies dyspnea Gastrointestinal: Gastrointestinal: Denies abdominal pain, Denies diarrhea, Reports nausea and Denies vomiting Musculoskeletal: Musculoskeletal: Denies back pain, Denies myalgias and Denies arthralgias Integumentary/Breasts: Skin/Breast: Denies pruritus and Denies rash Neurologic: Denies headache(s), Denies loss of vision and Denies weakness Psychiatric: Psychiatric: Reports no additional psychiatric complaints Endocrine: Endocrine: Denies fatigue Allergic/Immunologic: Allergic/Immunologic: Denies itchy eyes PMFSH Past Medical History Medical History Marijuana abuse History of methamphetamine abuse Methadone dependence Hepatitis C antibody positive in blood Diarrhea Weight loss Nausea and vomiting Abdominal pain, chronic, epigastric Surgical History Surgical History No pertinent past surgical history Family History Family History Mother Family history non-contributory Social History Social History Smoking packs per day: 0.5 Smoking cigarettes per day: 10.0 Years smoked: 15 Smoking pack-years: 7.50 Smoking status: Current every day smoker Tobacco type: cigarettes Substance use: former Substance use type: marijuana and methamphetamine Last use: daily Living arrangements: with family Comments At time of signature, agree with nursing past medical, surgical, social and family history. There is no relevant family history pertinent to the presenting complaint. Exam Const: General: cooperative, healthy appearing, comfortable, no acute distress and well nourished Nutritional Appearance: well nourished Orientation/consciousness: patient oriented x3 Limitations: no limitations HENMT: Head: normal to inspection, normocephalic and atraumatic Ears: hearing grossly normal bilaterally, external ears normal, TM's normal bilaterally, EAC's normal and no periauricular adenopathy Face/Nose/Sinus: Normal external nose present, Abnormal mucous membranes and turbinates present erythematous bilateral and diffuse, normal facial exam, sinuses nontender and face symmetric Face and sinus: normal facial exam, sinuses nontender and face symmetric Mouth: Yes Normal oral and palatal mucosa present, Yes lip normal, Yes tongue normal, Yes Normal salivary glands and ducts present, Yes oropharynx normal and Yes moist mucous membranes Teeth and gingiva: dentition normal Throat: uvula midline, abnormal tonsil bilateral erythema, exudates and hypertrophy 2+ and postnasal drainage Eyes: General: appearance normal, both eyes and all related structures Alignment and Position: alignment normal and position normal Periorbital: periorbital findings normal Eyelids: eyelids normal Pupils: Equal, round and reactive pupils present Neck: Neck: normal visual inspection, full ROM, no lymphadenopathy and supple Chest: Chest palpation & inspection: normal inspection of the chest and normal palpation of entire chest wall Resp: Effort & Inspection: normal respiratory effort and able to speak in complete sentences Auscultation: clear to auscultation bilaterally, no crackles, no rales, no rhonchi and no wheezes Cardio: Rate: tachycardic Rhythm: regular rhythm Heart sounds: S1 normal heart sound present and S2 normal heart sound present GI: Inspection: normal to inspection Skin: General skin exam: normal color and no rashes or lesions noted Neuro: General: patient oriented x3 and moves all extremities Cranial nerves: Yes Equal, round and reactive pupils present Speech: normal speech Gait exam (Neuro): Normal gait present Extrem: General: normal to inspection, full ROM and no edema Psych: Appearance: grossly normal and well kempt Mental Status: mental status grossly normal Speech and movement: Normal speech and movement present Affect: normal affect Attitude: cooperative Thought process: Normal th ought process present Course Course Emergency Course: Discharge instructions reviewed with patient, as well as provided in writing per nursing staff. The instructions also include specific and strict return/GO TO THE ER as well as f/u information. All questions have been answered, and the patient deny any further questions with discharge and discharge plan. Portions of this record may have been created with voice recognition software Level of Care: Express Care Visit Vital Signs Vital signs: Vital Signs Temperature 36.8 C 07/03/24 16:24 Pulse Rate 111 H 07/03/24 16:24 Respiratory Rate 07/03/24 16:24 Blood Pressure 110/74 07/03/24 16:24 Pulse Oximetry 96 07/03/24 16:24 Oxygen Delivery Room Air 07/03/24 16:24 Temperature 36.8 C 07/03/24 16:24 Pulse Rate 111 H 07/03/24 16:24 Respiratory Rate 16 07/03/24 16:24 Blood Pressure 110/74 07/03/24 16:24 Pulse Oximetry 96 07/03/24 16:24 Oxygen Delivery Room Air 07/03/24 16:24 Reviewed MDM - URI/Sore Throat MDM Narrative Medical decision making narrative: Pt well hydrated appearing, in no respiratory distress, hemodynamically stable. Recommend supportive care. The patient is stable at time of discharge the c linical impression was discussed and the patient was given the opportunity to ask questions, which were addressed as completely as possible given the information available at present. Anticipatory guidance and return to care precautions were discussed and the importance of primary care follow-up was stressed and encouraged. The patient voiced understanding of the plan, indications to return, and the need for follow-up. Differential diagnosis considered: Nagel virus, strep pharyngitis, allergic rhinitis, upper respiratory tract infection, sinusitis, rhinosinusitis, nasop haryngitis. viral pharyngitis, otitis media, otitis externa, otitis effusion, foreign body, cerumen impaction, viral syndrome, and influenza.? Exam findings show no acute concerns or changes; patient is non-toxic appearing and is in no distress.? Patient is appropriate for outpatient treatment and follow-up.? Medical Records Attestation: I reviewed the patient's medical records. Lab Data Attestation: I reviewed the patient's lab results. Labs: Lab Results 07/03/24 Range/Units 17:14 POC Influenza A Ag Negative (Negative) POC Influenza B Ag Negative (Negative) POC Grp A Strep Screen Negative (Negative) Discharge Plan Discharge Clinical Impression: Viral infection Patient Disposition: Home, Self-Care Condition: Stable Instructions: Viral Syndrome (ED) Additional Instructions: Your rapid strep swab was negative today at [facility]. A throat culture will be sent to the laboratory for further testing. If the test is positive, you will receive a phone call within 48 hours and an appropriate antibiotic will be initiated at that time. Your flu is negative. Your symptoms are likely due to a viral illness, which is not treated with antibiotics. Viral symptoms can be present for up to a few weeks. -Alternate Tylenol and Motrin per package directions for fever or pain. -Antihistamine medication such as Benadryl/Zyrtec at night and Claritin/Genia during the day can help improve symptoms. -Use Flonase twice a day for 5 days then daily to help reduce the inflammation and dry up your sinuses. -You can also use Sudafed behind the pharmacy counter(12 or 24 hour). Be sure to drink plenty of water with these medications at least 8 ounces with every dose and it is important to drink 8 to 10 glasses of water per day. Water is a natural decongestant -Eat and drink things that are easy to swallow, like tea or soup, or popsicles. -Oral rinses such as: Salt water gargles and/or may use topical anesthetic (eg. Chloraseptic spray) or lozenges to relieve dryness or throat pain). -Frequent hand washing or hand university administrator is one of the best ways to prevent spread of infection. -Using a vaporizer or humidifier at night will also help thin secretions and help with coughing up phlegm. -Follow up with primary care provider in 3-5 days if condition is not improving - For new or worsening symptoms go directly to the nearest ER Patient Language: Upper Sorbian Prescriptions: New ondansetron 4 mg tablet,disintegrating 4 mg PO Q6-8H PRN (Reason: nausea and vomiting) Qty: 7 0RF fluticasone propionate [Flonase Allergy Relief] 50 mcg/actuation spray,suspension 1 spray intranasal DAILY Qty: 16 0RF Rx Instructions: administer into each nostril No Action trazodone 150 mg tablet 150 mg PO QHS PRN (Reason: Insomnia) bupropion HCl 150 mg tablet extended release 24 hr 150 mg PO BID lamotrigine 100 mg tablet 100 mg PO DAILY clonidine HCl 0.3 mg tablet 0.3 mg PO DAILY clonazepam 0.5 mg tablet 0.5 mg PO BID PRN (Reason: Anxiety) methadone 40 mg Tablet,Soluble 82 mg PO DAILY etonogestrel-ethinyl estradiol [NuvaRing] 0.12-0.015 mg/24 hr Ring 1 vag ring VAGINAL MONTHLY Follow-up/Referrals: PHYSICIAN,MATERIAL REQUIREMENTS PLANNING MANAGER [Primary Care Provider] - Merritt Gould MD [Physician] - 3 Days Time of Disposition: 17:50
[2024-07-03 16:24] VITALS: BP 110/74; PULSE 111; RESP 16; TEMP 36.8; O2SAT 96
[2024-07-03 17:15] LABS: EDINFLUASCREEN Negative (Negative); EDINFLUBSCREEN Negative (Negative); EDSTREPNEGPOS1 Negative (Negative)
== END 2024-07-03 17:59 | disposition home or self-care (01) ==
PROVIDERS: Emergency Provider Nurse Practitioner Family
DX: B34.9 Viral infection, unspecified (principal); F17.210 Nicotine dependence, cigarettes, uncomplicated; F15.20 Other stimulant dependence, uncomplicated
CPT/HCPCS: 87081; 87804; 87880; 99213; G0463

== ENCOUNTER 2024-12-29 17:33 | Emergency (ER) | payer OTHER, SELFPAY ==
[2024-12-29 17:39] VITALS: BP 119/67; PULSE 101; RESP 18; TEMP 37.2; O2SAT 97
--- NOTE | 2024-12-29 17:59 | ED_ITS ---
HPI - Skin/Abscess/Foreign Bdy General Chief complaint: Skin/Abscess/Foreign Body Stated complaint: Insect Bite Time Seen by Provider: 12/29/24 17:35 Source: patient and RN notes reviewed Mode of arrival: ambulatory Limitations: no limitations History of Present Illness HPI narrative: 34-year-old female presents Express Care complaining of possible bug bite to her left neck. Patient says she woke up this morning and noticed that around 7:00 a.m. this morning. Patient reports burning, itchiness to site. Patient is unsure what might have bit her. Patient denies any difficulty breathing,, throat swelling, difficulty clearing secretions, chest pain, difficulty breathing, nausea, vomiting, fevers, body aches, chills, or any other symptoms. Related Data Home Medications ?Medication ?Instructions ?Recorded ?Confirmed ?Last Taken ?Type bupropion HCl 150 mg 24 hr tablet, 150 mg PO BID 12/21/22 07/03/24 Unknown History extended release clonidine HCl 0.3 mg tablet 0.3 mg PO DAILY 12/21/22 07/03/24 Unknown History lamotrigine 100 mg tablet 100 mg PO DAILY 12/21/22 07/03/24 Unknown History trazodone 150 mg tablet 150 mg PO QHS PRN Insomnia 12/21/22 07/03/24 Unknown History clonazepam 0.5 mg tablet 0.5 mg PO BID PRN Anxiety 01/25/23 07/03/24 Unknown History etonogestrel 0.12 mg-ethinyl 1 vag ring vaginal MONTHLY 01/25/23 07/03/24 Unknown History estradiol 0.015 mg/24 hr vaginal ring (NuvaRing) methadone 40 mg soluble tablet 82 mg PO DAILY 01/25/23 07/03/24 Unknown History alprazolam 0.5 mg tablet mg 12/29/24 Unknown History Allergies Allergy/AdvReac Type Severity Reaction Status Date / Time Sulfa (Sulfonamide Allergy Mild Unknown Verified 12/29/24 17:34 Antibiotics) Review of Systems Review of Systems: CONSTITUTIONAL: Denies fever, chills, or sweats. EYES: Denies visual changes, redness, or discharge. ENT: Denies rhinorrhea, congestion, sore throat, difficulty clearing secretions, or otalgia. CARDIOVASCULAR: Denies chest pain, palpitations, or edema. RESPIRATORY: Denies cough, wheezing, or dyspnea. GASTROINTESTINAL: Denies abdominal pain, nausea, vomiting, or diarrhea. GENITOURINARY: Denies dysuria or hematuria. SKIN: Denies rash. Positive for insect bite and itching. MUSCULOSKELETAL: Denies back pain, joint pain, or myalgia. NEUROLOGIC: Denies headache, numbness, or weakness. PSYCHIATRIC: Denies anxiety or depression. All other systems reviewed are negative, except as documented in HPI. PMFSH Past Medical History Medical History Marijuana abuse History of methamphetamine abuse Methadone dependence Hepatitis C antibody positive in blood Diarrhea Weight loss Nausea and vomiting Abdominal pain, chronic, epigastric Surgical History Surgical History No pertinent past surgical history Family History Family History Mother Family history non-contributory Social History Social History Smoking packs per day: 0.5 Smoking cigarettes per day: 10.0 Years smoked: 15 Smoking pack-years: 7.50 Smoking status: Current every day smoker Tobacco type: cigarettes Substance use: former Substance use type: marijuana and methamphetamine Last use: daily Living arrangements: with family Comments At the time of my signature, I reviewed and agree with the nursing past medical, surgical, social, and family history. There is no relevant family history pertinent to the patient complaint. Exam Narrative: GENERAL: This is a well-nourished, well-developed adult, in no apparent distress. They are non ill-appearing, nontoxic appearing. HEAD: normocephalic, atraumatic. EYES: Sclera clear/white. Conjunctiva normal. Vision is grossly intact. Extraocular movements intact EARS: External ears normal,Hearing grossly intact. NOSE: External nose normal THROAT: Mucous membranes moist, NECK: Neck supple, non-tender without lymphadenopathy, masses or thyromegaly. CARDIOVASCULAR: Regular rate and rhythm RESPIRATORY: Respiratory rate normal, respiratory effort nonlabored, no respiratory distress SKIN: Erythematous pruritic vesicle cut has very small fine circular pustule in the center. It is measuring approximately 1.5 cm x 1 cm. No induration, no area of fluctuance, no surrounding cellulitis, no exudate. Rashes nontender to palpate. NEURO: awake, alert, and oriented to person, place and time. There were no obvious focal neurologic abnormalities. EXTREMITIES: No joint tenderness, effusion, or edema noted. Course Course Emergency Course: Portions of this record may have been created with voice recognition software Level of Care: Express Care Visit Vital Signs Vital signs: Vital Signs Temperature 98.9 F 12/29/24 17:39 Pulse Rate 101 H 12/29/24 17:39 Respiratory Rate 18 12/29/24 17:39 Blood Pressure 119/67 12/29/24 17:39 Pulse Oximetry 97 12/29/24 17:39 Oxygen Delivery Room Air 12/29/24 17:39 Temperature 98.9 F 12/29/24 17:39 Pulse Rate 101 H 12/29/24 17:39 Respiratory Rate 18 12/29/24 17:39 Blood Pressure 119/67 12/29/24 17:39 Pulse Oximetry 97 12/29/24 17:39 Oxygen Delivery Room Air 12/29/24 17:39 Reviewed MDM - Skin/Abscess/Foreign Bdy MDM Narrative Medical decision making narrative: Likely patient has some type insect bite. Given center post will go ahead and prescribe mupirocin ointment with triamcinolone cream. Discussed physical exam findings. Advised supportive measures and signs/symptoms to go to the ER. Pt is appropriate for outpt treatment and f/u. Differential Diagnosis Differential diagnosis: Likely urticaria, cellulitis, eczema, insect bites and impetigo Critical Care Time Critical Care Time Critical Care Time: No Discharge Plan Discharge Clinical Impression: Insect bite Qualifiers: Encounter type: initial encounter Site of insect bite: unspecified part of neck Qualified Code(s): S10.96XA - Insect bite of unspecified part of neck, initial encounter Patient Disposition: Home Condition: Stable Instructions: Antibiotic Form, Insect Bite or Sting (ED) Additional Instructions: Use the mupirocin ointment as directed. Apply the triamcinolone cream as directed. You may use calamine lotion, camphor, Benadryl cream as needed for itchiness symptoms, follow the instructions on the bottle. You may also take Zyrtec or Claritin as needed for allergy or symptoms, follow instructions on the bottle.. Follow-up PCP in 3-5 days. If you develop any worsening redness, swelling, green or yellow discharge, fevers, breathing problems, or any other concerns please go to the ER immediately. Patient Language: Romansh Prescriptions: New triamcinolone acetonide 0.1 % cream 1 applic topical BID 7 Days Qty: 15 0RF mupirocin calcium 2 % cream 1 applic topical BID 7 Days Qty: 30 0RF No Action alprazolam 0.5 mg tablet trazodone 150 mg tablet 150 mg PO QHS PRN (Reason: Insomnia) bupropion HCl 150 mg tablet extended release 24 hr 150 mg PO BID lamotrigine 100 mg tablet 100 mg PO DAILY clonidine HCl 0.3 mg tablet 0.3 mg PO DAILY clonazepam 0.5 mg tablet 0.5 mg PO BID PRN (Reason: Anxiety) methadone 40 mg Tablet,Soluble 82 mg PO DAILY etonogestrel-ethinyl estradiol [NuvaRing] 0.12-0.015 mg/24 hr Ring 1 vag ring VAGINAL MONTHLY Follow-up/Referrals: PHYSICIAN,DIRECTOR MEDICAL ECONOMICS [Primary Care Provider] - Time of Disposition: 17:51
== END 2024-12-29 18:00 | disposition home or self-care (01) ==
DX: S10.96XA Insect bite of unspecified part of neck, initial encounter (principal); W57.XXXA Bitten or stung by nonvenomous insect and other nonvenomous arthropods, initial encounter; F17.210 Nicotine dependence, cigarettes, uncomplicated
CPT/HCPCS: 99213; G0463

== ENCOUNTER 2024-12-31 20:07 | Emergency (ER) | payer OTHER, SELFPAY ==
--- OUTSIDE RECORDS SUMMARY | 2024-12-31 20:09 | XMS_ITS | Clinical Summary ---
Author Organization [facility] Address [address] [place] [address] Care Team Providers Care Flash Drier Operator Name Role Phone Unavailable Primary Care Provider Unavailabl e Social History Tobacco Use Types Packs/Day Years Used Date Smoking Tobacco: Never Assessed Comments Unknown Sex and Gender Information Value Date Recorded Sex Assigned at Not on file Legal Sex Female 4:24 PM CDT Gender Identity Not on file Sexual Orientation Not on file Plan of Treatment Health Maintenance Due Date Last Done Comments Cervical Cancer Screening Pa p Smear (Age 30 to 64) Every 3 Years 1992 Annual Physical 01/24/1995 Hepatitis C 01/24/2010 DTaP, Tdap and Td Vaccines ( 1 - Tdap) 01/24/2011 Hepatitis B Vaccines (1 of 3 - 19+ 3-dose series) 01/24/2011 HPV Vaccines (1 - 3-dose SCD M series) 01/24/2019 Cervical Cancer Screening Pa p with HPV Testing (Age 30 to 64) Every 5 Years 01/24/2022 Cervical Cancer Screening with HPV 01/24/2022 COVID-19 Vaccine ( - 2023-2 5 season) 2024 Meningococcal B Vaccine Aged Out No l onger eligible based on patient's age to complete this topic Meningococcal Vaccine Aged Out No ian lee eligible based on patient's age to complete this topic Pneumococcal Vaccine: Pediat rics (0 to 5 Years) and At-Risk Patients (6 to 49 Years) Aged Out No longer eligible b ased on patient's age to complete this topic RSV Immunizations Under 20 Months Aged Out No longer eligible based on patient's age to complete this topic
--- OUTSIDE RECORDS SUMMARY | 2024-12-31 20:09 | XMS_ITS | Patient Health Record ---
Author Organization [facility] [employer] Address [facility] [facility] [address] [facility] [address] [place] [address] Care Team Providers Care Institution Librarian Name Role Phone Wesley Munoz Unavailable [phone] Reason For Referral No Information Plan Of Treatment No Information
--- OUTSIDE RECORDS SUMMARY | 2024-12-31 20:09 | XMS_ITS | Clinical Summary ---
Author Organization [facility] [employer] Address [address] [facility] [place] [address] Care Team Providers Care High Climber Name Role Phone Jennifer Aguayo MD Primary Care Provider [phone] Source Comments [facility] [employer],non-owned Affiliates and Associated Physician Practices is amultiple site organization consisting of ambulatory clinics and hospital sitesin [place], [place], [place] and [place]. This disclosure is being madepursuant to the Care Everywhere program and may not contain all information available regarding this patient. Last updated 18.[facility] [employer] Allergies Active Allergy Reactions Criticality Noted Date Comments Sulfa Drugs Other 12/25/2019 Body cruz to The touch Medications * Be aware that medications may not be up to date on this document. Alwaysverify current medications with the patient. METHADONE HCL PO Take 125 mg by mouth once daily Active escitalopram (LEXAPRO) 20 MG tablet Take 20 mg by mouth once daily Active metroNIDAZOLE vaginal (METROGEL - VAGINAL) 0.75 % vaginal gel Insert 1 applicator into the vagina at bedtime Active OXcarbazepine (TRILEPTAL) 150 MG tablet Take 150 mg by mouth 2 times daily Active QUEtiapine (SEROQUEL) 25 MG tablet Take 25 mg by mouth once daily as needed Active metroNIDAZOLE (FLAGYL) 500 MG tablet Take 500 mg by mouth 2 times daily Active levonorgestrel (MIRENA, 52 MG,) 20 MCG/24HR IUD 1 device by Intrauterine route as directed Active APPLE CIDER VINEGAR PO 6 gummies per day Active Melatonin 3 MG Take by mouth at bedtime Active hydrOXYzine hcl (ATARAX) 25 MG tablet Take 25 mg by mouth at bedtime Active Active Problems Problem Noted Date Diagnosed Date Chronic hepatitis C without hepatic coma 020 Overview (12/29/2019): Hepatitis B core antibody non reactive Major depressive disorder, single episode, moder ate 12/25/2019 Social History Tobacco Use Types Packs/Day Years Used Date Smoking Tobacco: Every Day Cigarettes Smokeless Tobacco: Never Alcohol Use Standard Drinks/Week Comments Never 0 (1 standard drink = 0.6 oz pur e alcohol) AUDIT-C Answer Date Recorded Q1: How often do you have a drink containing alc ohol? 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 Gender Identity Not on file Sexual Orientation Not on file Last Filed Vital Signs Vital Sign Reading Time Taken Comments Blood Pressure 106/82 12/25/2019 10:38 AM CDT Pulse 90 12/25/2019 10:38 AM CDT Temperature 36.8 C (98.3 F) 12/25/2019 10:38 AM CDT Respiratory Rate 19 12/25/2019 10:3 8 AM CDT Oxygen Saturation 98% 12/25/2019 10: 38 AM CDT Inhaled Oxygen Concentration - - Weight 62.1 kg (136 lb 12.8 oz) 020 10:38 AM CDT Height 154.9 cm (5' 1) 12/25/2019 10:3 8 AM CDT Body Mass Index 25.85 12/25/2019 10:38 AM CDT Plan of Treatment Health Maintenance Due Date Last Done Comments DTAP/TDAP/TD VACCINES (1 - Tdap) 01/24/2011 HEPATITIS B VACCINE (1 of 3 - 19+ 3-dose series) 01/24/2011 PNEUMOCOCCAL VACCINE (1 of 2 - PCV) 01/24/2011 PAP SMEAR 01/24/2013 HPV VACCINE (1 - 3-dose SCDM series) 01/24/2019 COVID-19 VACCINE (1 - season) 2024 DEPRESSION SCREENING 06/04/2024 INFLUENZA VACCINE (#1) 2025 ZOSTER VACCINE (1 of 2) 01/24/2042 HEPATITIS C SCREENING Completed 12/25/2019 , 12/25/2019, 12/25/2019, Additional history exists HIV SCREENING Completed 12/25/2019 HIB VACCINE Aged Out No longer eligi ble based on patient's age to complete this topic MENINGOCOCCAL (Group B) VACCINE SHARED DECISION-MAKING Aged Out No longer eligible based on patient's age to complete this topic MENINGOCOCCAL GROUPS A/C/Y/W VACCINE Aged Out No longer eligible based on patient's age to complete this topic Goals Goal Patient Goal Type Associated Problems Recent Progress Patient-Stated? Author Medication Management General Naila Drummond, RN Note: Expected end date: ongoing Interventions: Take all medications as prescribed Procedures Procedure Name Priority Date/Time Associated Diagnosis Comments HEPATITIS C GENOTYPE Routine 12/25/2019 12:18 PM CDT Chronic hepatitis C without hepatic coma HIV-1 HIV-2 ANTIGEN/ANTIBODY Routine 12/25/2019 12:18 PM CDT Chronic hepatitis C without hepatic coma from Last 3 Months or Most Recently Relevant to Health Maintenance Results * HIV-1 HIV-2 ANTIGEN/ANTIBODY (12/25/2019 12:18 PM CDT) Pathologist [facility] HIV Antigen/Antibod y 1 & 2 Non-reacti ve Non-react sam 12/25/2019 2:34 PM CDT [facility] Comment:Neither HIV-1 p24 An tigen nor HIV-1/HIV-2 Antibodies are detected. Blood BLOOD SPECIMEN / Unknown Lab Venipuncture / Unknown 12/25/2019 12:18 PM CDT 12/25/2019 1:08 PM CDT us Edith Patel CASING MACHINE OPERATOR-DRILLING SUPERINTENDENT LAB - HEMATOLOGY ORD ERABLES Final Result [facility] [address] [place] [id number], [facility] [phone] * HEPATITIS C GENOTYPE (12/25/2019 12:18 PM CDT) Hepatitis C Genotype Indeterminate 12/31/2019 2:34 PM CDT [facility] [employer] ([facility]) Comment: Hepatitis C GENOTYPING IS INDETERMINATE. This test may be unsuccessful if the HCV RNA viral load is less than log 3.6 or 4000 IU per mL. Repeat testing may be appropriate if and when the viral load becomes greater than log 3.6 or 4000 IU/mL. In addition to low viral load, other conditions, such as PCR inhibitors, viral genetic variation, etc., may cause RT-PCR failure resulting in an indeterminate result. INTERPRETIVE INFORMATION: Hepatitis C Genotyping Hepatitis C Viral RNA is tested using reverse system support specialist polymerase chain reaction (RT-PCR) to amplify a specific portion of the 5' untranslated region (5' UTR) of the viral genome. The amplified nucleic acid is sequenced bi-directionally using dye-terminator chemistry ([employer]). Sequencing data is compared to a database of characterized sequences. Isolates of hepatitis C virus are grouped into six major genotypes (1-6). These genotypes are subtyped according to sequence characteristics. Due to high conservation of the 5' un-translated region of the HCV genome, this test has limitations in differentiating subtype 1a from 1b. Therefore, these subtypes will be reported as 1a or 1b. In rare instances, Type 6 virus may be misclassified as Type 1. Test developed and characteristics determined by [facility]. See Compliance Statement B: [employer]ob[employer]/CS Performed By: [facility] [address] [place] [address] Python Consultant: Rui Simmons MD, MS Blood BLOOD SPECIMEN / Unknown Lab Venipuncture / Unknown 12/25/2019 12:18 PM CDT 12/25/2019 1:08 PM CDT Edith Patel CASING MACHINE OPERATOR-DRILLING SUPERINTENDENT LAB - CHEMISTRY SHOBHA BUSTAMANTE Final Result [email or web address] ([facility]) [address] [place] [address], [facility] from Last 3 Months or Most Recently Relevant to Health Maintenance Insurance [facility] GROUP HEALTH PLAN [facility] GROUP HEALTH PLAN [facility] HEALTH PL[facility] Care Teams High Climber Relationship Specialty Start Date End Date Jennifer Aguayo MD [address] [place] [address] [place] [id number] PCP - General 12/23/19
[2024-12-31 20:18] VITALS: BP 115/72; PULSE 85; RESP 16; TEMP 36.6; O2SAT 99
--- OUTSIDE RECORDS SUMMARY | 2024-12-31 20:46 | XMS_ITS | Clinical Summary ---
Author Organization [facility] Address [address] [place] [address] Care Team Providers Care Cop Breaker Name Role Phone Unavailable Primary Care Provider [...]
--- OUTSIDE RECORDS SUMMARY | 2024-12-31 20:46 | XMS_ITS | Clinical Summary ---
Author Organization [facility] Address [address] [facility] [place] [address] Care Team Providers Care Physician In Private Practice Name Role Phone Jennifer Aguayo MD Primary Care Provider [phone] Source Comments [facility],non-owned Affiliates and Associated Physician Practices is amultiple site organization consisting of ambulatory clinics and hospital sitesin [place], [place], [place] and [place]. This disclosure is being madepursuant to the Care Everywhere program and may not contain all information available regarding this patient. 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 Blood BLOOD SPECIMEN / Unknown Lab Venipuncture / Unknown 12/25/2019 12:18 PM CDT 12/25/2019 1:08 PM CDT us Edith Patel COMMUNITY SERVICE PATROL OFFICER-CHEMICAL MAKER LAB - HEMATOLOGY ORD ERABLES Final Result [facility] [address] [place] [id number], [facility] [phone] * HEPATITIS C GENOTYPE (12/25/2019 12:18 PM CDT) Hepatitis C Genotype Indeterminate 12/31/2019 2:34 PM CDT [facility] [email or web address] ([facility]) Comment: Hepatitis C GENOTYPING IS INDETERMINATE. This [...] C Viral RNA is tested using reverse dietary internship polymerase chain reaction (RT-PCR) to amplify a specific portion of the 5' untranslated region (5' UTR) of the viral genome. The amplified nucleic acid is sequenced bi-directionally using dye-terminator chemistry ([employer]). Sequencing data is compared to a database [...] 1. Test developed and characteristics determined by [facility]. See Compliance Statement B: [employer]/CS Performed By: [facility] [address] [place] [address] Mineral Technologist: Rui Simmons MD, MS Blood BLOOD SPECIMEN / Unknown Lab Venipuncture / Unknown 12/25/2019 12:18 PM CDT 12/25/2019 1:08 PM CDT Edith Patel COMMUNITY SERVICE PATROL OFFICER-CHEMICAL MAKER LAB - CHEMISTRY SHOBHA BUSTAMANTE Final Result [email or web address] ([facility]) [address] [place] [address], [facility] from Last 3 Months or Most Recently Relevant to Health Maintenance Insurance [facility] HEALTH PLAN [facility] Care Teams Physician In Private Practice Relationship Specialty Start Date End Date Jennifer Aguayo MD [address] [place] [address] [place] [id number] PCP - General 12/23/19
--- NOTE | 2024-12-31 20:56 | ED.DENTAL ---
HPI - Dental/Oral General Chief complaint: Dental/Oral Stated complaint: dental abcess Time Seen by Provider: 12/31/24 20:11 Source: patient Mode of arrival: ambulatory Limitations: no limitations History of Present Illness HPI Narrative: Patient is a 34-year-old female who presents the ED with report of dental pain. Patient reports having pain along her lower front teeth, #24/25 since last night. She saw her dentist today and was prescribed amoxicillin. She did not pick this up from the pharmacy. She reports having increased pain and swelling throughout her lower inner gumline throughout the day today, which prompted her presentation here. Denies difficulty breathing or swelling. Has not taken anything for pain. Denies fevers. Related Data Home Medications ?Medication ?Instructions ?Recorded ?Confirmed ?Last Taken ?Type bupropion HCl 150 mg 24 hr tablet, 150 mg PO BID 12/21/22 07/03/24 Unknown History extended release clonidine HCl 0.3 mg tablet 0.3 mg PO DAILY 12/21/22 07/03/24 Unknown History lamotrigine 100 mg tablet 100 mg PO DAILY 12/21/22 07/03/24 Unknown History trazodone 150 mg tablet 150 mg PO QHS PRN Insomnia 12/21/22 07/03/24 Unknown History clonazepam 0.5 mg tablet 0.5 mg PO BID PRN Anxiety 01/25/23 07/03/24 Unknown History etonogestrel 0.12 mg-ethinyl 1 vag ring vaginal MONTHLY 01/25/23 07/03/24 Unknown History estradiol 0.015 mg/24 hr vaginal ring (NuvaRing) methadone 40 mg soluble tablet 82 mg PO DAILY 01/25/23 07/03/24 Unknown History alprazolam 0.5 mg tablet mg 12/29/24 Unknown History Allergies Allergy/AdvReac Type Severity Reaction Status Date / Time Sulfa (Sulfonamide Allergy Mild Unknown Verified 12/31/24 20:17 Antibiotics) Review of Systems Review of Systems: All systems reviewed & are unremarkable except as noted in HPI. All systems reviewed & are unremarkable except as noted in HPI and below PMFSH Past Medical History Medical History Marijuana abuse History of methamphetamine abuse Methadone dependence Hepatitis C antibody positive in blood Diarrhea Weight loss Nausea and vomiting Abdominal pain, chronic, epigastric Surgical History Surgical History No pertinent past surgical history Family History Family History Mother Family history non-contributory Social History Social History Smoking packs per day: 0.5 Smoking cigarettes per day: 10.0 Years smoked: 15 Smoking pack-years: 7.50 Smoking status: Current every day smoker Tobacco type: cigarettes Substance use: former Substance use type: marijuana and methamphetamine Last use: daily Living arrangements: with family Exam Narrative: GENERAL: Well appearing, well-nourished, non-toxic, in no acute distress. HEAD: Normocephalic, atraumatic. ENT: Tenderness to palpation and mild gum inflammation throughout lower inner gumline along teeth number 24/25. No focal abscess or fluctuance. No drainage. No bleeding. No stridor or trismus. No tonsillar hypertrophy or exudate. Uvula midline. Maintaining secretions. RESPIRATORY: Airway patent, respirations nonlabored. CARDIOVASCULAR: Regular rate and rhythm MUSCULOSKELETAL: Moves all extremities. No gross deformities. SKIN: Warm, dry, normal color. NEURO: A&O X3. Speech clear. PSYCHIATRIC: Appropriate mood and affect. Normal interaction. Course Vital Signs Vital signs: Vital Signs Temperature 98 F 12/31/24 20:18 Pulse Rate 85 12/31/24 20:18 Respiratory Rate 16 12/31/24 20:18 Blood Pressure 115/72 12/31/24 20:18 Pulse Oximetry 99 12/31/24 20:18 Oxygen Delivery Room Air 12/31/24 20:18 Temperature 98 F 12/31/24 20:18 Pulse Rate 85 12/31/24 20:18 Respiratory Rate 16 12/31/24 20:18 Blood Pressure 115/72 12/31/24 20:18 Pulse Oximetry 99 12/31/24 20:18 Oxygen Delivery Room Air 12/31/24 20:18 MDM - Dental/Oral MDM Narrative Medical decision making narrative: Patient's pain is consistent with dental caries. There are no focal signs of space-occupying abscess. The patient is controlling secretions well without signs of airway compromise. Patient is felt reasonable for outpatient follow-up with dental evaluation. Advised to take antibiotics as prescribed that were given to her by dentist today. Given 1st dose in the ED as she reports she is unable to pick them up from the pharmacy tonight. She reports nausea frequently with antibiotics. Will prescribe Zofran. Advised to continue Tylenol/ibuprofen. Given return precautions. Discharged in stable condition. Medical Records Attestation: I reviewed the patient's medical records. Discharge Plan Discharge Clinical Impression: Dental infection, Toothache Patient Disposition: Home Condition: Stable Instructions: Antibiotic Form, Toothache (ED) Additional Instructions: Continue antibiotics as prescribed by your dentist. Utilize Zofran as needed for nausea. Continue Tylenol/ibuprofen as needed for pain. Continue to follow-up with her dentist for further evaluation. Return to the ED for new or worsening concerns. Patient Language: Sierra Leonean Prescriptions: New ondansetron 4 mg tablet,disintegrating 4 mg PO Q8H PRN (Reason: nausea and vomiting) Qty: 15 0RF No Action alprazolam 0.5 mg tablet triamcinolone acetonide 0.1 % cream 1 applic topical BID 7 Days Qty: 15 0RF mupirocin calcium 2 % cream 1 applic topical BID 7 Days Qty: 30 0RF trazodone 150 mg tablet 150 mg PO QHS PRN (Reason: Insomnia) bupropion HCl 150 mg tablet extended release 24 hr 150 mg PO BID lamotrigine 100 mg tablet 100 mg PO DAILY clonidine HCl 0.3 mg tablet 0.3 mg PO DAILY clonazepam 0.5 mg tablet 0.5 mg PO BID PRN (Reason: Anxiety) methadone 40 mg Tablet,Soluble 82 mg PO DAILY etonogestrel-ethinyl estradiol [NuvaRing] 0.12-0.015 mg/24 hr Ring 1 vag ring VAGINAL MONTHLY Follow-up/Referrals: UNKNOWN,DOCTOR [Primary Care Provider] - Time of Disposition: 21:09
[2024-12-31] MEDS: IBUPROFEN 600 MG TABLET PO (21:03)
[2024-12-31] MEDS: ONDANSETRON HCL ODT 4 MG TABLET PO (21:03)
== END 2024-12-31 21:17 | disposition home or self-care (01) ==
PROVIDERS: Emergency Provider Physician Assistant
DX: K04.7 Periapical abscess without sinus (principal); F17.210 Nicotine dependence, cigarettes, uncomplicated
CPT/HCPCS: 99283; A9270

== ENCOUNTER 2025-01-01 15:12 | Emergency (ER) | payer OTHER, SELFPAY ==
--- OUTSIDE RECORDS SUMMARY | 2025-01-01 15:14 | XMS_ITS | Patient Health Record ---
Author Organization [facility] Cued Address [facility] [facility] [address] [facility] [address] [place] [address] Care Team Providers Care Rehabilitation Assistant Name Role Phone Wesley Munoz Unavailable [phone] Reason For Referral No Information Plan Of Treatment No Information
--- OUTSIDE RECORDS SUMMARY | 2025-01-01 15:14 | XMS_ITS | Clinical Summary ---
Author Organization [facility] Address [address] [place] [address] Care Team Providers Care Medical Fee Clerk Name Role Phone Unavailable Primary Care Provider [...]
--- OUTSIDE RECORDS SUMMARY | 2025-01-01 15:14 | XMS_ITS | Clinical Summary ---
Author Organization [facility] Address [address] [place] [address] Care Team Providers Care Laryngologist Name Role Phone Jennifer Aguayo MD Primary Care Provider [phone] Source Comments [facility],non-owned Affiliates and Associated Physician Practices is amultiple site organization consisting of ambulatory clinics and hospital sitesin [place], [place], [place] and [place]. This disclosure is being madepursuant to the Care Everywhere program and may not contain all information available regarding this patient. 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 Blood BLOOD SPECIMEN / Unknown Lab Venipuncture / Unknown 12/25/2019 12:18 PM CDT 12/25/2019 1:08 PM CDT us Edith Patel SERVICE PARTS COORDINATOR-COMPUTED TOMOGRAPHY TECHNICIAN LAB - HEMATOLOGY ORD ERABLES Final Result [facility] [address] [place] [id number], [facility] [phone] * HEPATITIS C GENOTYPE (12/25/2019 12:18 PM CDT) Hepatitis C Genotype Indeterminate 12/31/2019 2:34 PM CDT [facility] ([facility]) Comment: Hepatitis C GENOTYPING IS INDETERMINATE. [...] C Viral RNA is tested using reverse farm tractor mechanic polymerase chain reaction (RT-PCR) to amplify a specific portion of the 5' untranslated region (5' UTR) of the viral genome. The amplified nucleic acid is sequenced bi-directionally using dye-terminator chemistry ([employer]). Sequencing data is compared to a database [...] 1. Test developed and characteristics determined by [facility]. See Compliance Statement B: [employer]ALOSKO/CS Performed By: [facility] [address] [place] [address] Neuroscience Director Na: Rui Simmons MD, MS Blood BLOOD SPECIMEN / Unknown Lab Venipuncture / Unknown 12/25/2019 12:18 PM CDT 12/25/2019 1:08 PM CDT Edith Patel SERVICE PARTS COORDINATOR-COMPUTED TOMOGRAPHY TECHNICIAN LAB - CHEMISTRY SHOBHA BUSTAMANTE Final Result [facility] ([facility]) [address] [place] [address], [facility] from Last 3 Months or Most Recently Relevant to Health Maintenance Insurance [facility] Care Teams Laryngologist Relationship Specialty Start Date End Date Jennifer Aguayo MD [address] [place] [address] [place] [id number] PCP - General 12/23/19
[2025-01-01 15:36] VITALS: BP 123/68; PULSE 110; RESP 16; TEMP 36.4; O2SAT 99
--- NOTE | 2025-01-01 17:06 | PC.NURSE ---
PT CHOSE NOT TO BE SEEN, AMBULATED OUT OF ED
--- OUTSIDE RECORDS SUMMARY | 2025-01-01 17:11 | XMS_ITS | Clinical Summary ---
Author Organization [facility] Address [address] [place] [address] Care Team Providers Care Greenhouse Florist Name Role Phone Unavailable Primary Care Provider [...]
--- OUTSIDE RECORDS SUMMARY | 2025-01-01 17:11 | XMS_ITS | Clinical Summary ---
Author Organization [facility] Address [address] [facility] [place] [address] Care Team Providers Care Bottom Steep Tender Name Role Phone Jennifer Aguayo MD Primary Care Provider [phone] Source Comments [facility],non-owned Affiliates and Associated Physician Practices is amultiple site organization consisting of ambulatory clinics and hospital sitesin [place], [place], [place] and [place]. This disclosure is being madepursuant to the Care Everywhere program and may not contain all information available regarding this patient. 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 Blood BLOOD SPECIMEN / Unknown Lab Venipuncture / Unknown 12/25/2019 12:18 PM CDT 12/25/2019 1:08 PM CDT us Edith Patel PRACTICE SPECIALIST-TERMITE EXTERMINATOR LAB - HEMATOLOGY ORD ERABLES Final Result [facility] [address] [place] [id number], [facility] [phone] * HEPATITIS C GENOTYPE (12/25/2019 12:18 PM CDT) Hepatitis C Genotype Indeterminate 12/31/2019 2:34 PM CDT [facility] ([facility]) Comment: Hepatitis C GENOTYPING IS INDETERMINATE. This [...] C Viral RNA is tested using reverse family day carer polymerase chain reaction (RT-PCR) to amplify a specific portion of the 5' untranslated region (5' UTR) of the viral genome. The amplified nucleic acid is sequenced bi-directionally using dye-terminator chemistry ([employer]). Sequencing data is compared to a database [...] 1. Test developed and characteristics determined by [facility]. See Compliance Statement B: [employer]/CS Performed By: [facility] [address] [place] [address] Messenger Office: Rui Simmons MD, MS Blood BLOOD SPECIMEN / Unknown Lab Venipuncture / Unknown 12/25/2019 12:18 PM CDT 12/25/2019 1:08 PM CDT Edith Patel PRACTICE SPECIALIST-TERMITE EXTERMINATOR LAB - CHEMISTRY SHOBHA BUSTAMANTE Final Result [facility] ([facility]) [address] [place] [address], [facility] from Last 3 Months or Most Recently Relevant to Health Maintenance Insurance [facility] HE[facility] Care Teams Bottom Steep Tender Relationship Specialty Start Date End Date Jennifer Aguayo MD [address] [place] [address] [place] [id number] PCP - General 12/23/19
== END 2025-01-01 17:23 | disposition left against medical advice (07) ==
DX: K14.9 Disease of tongue, unspecified (principal)
CPT/HCPCS: 99199

== ENCOUNTER 2025-01-13 18:56 | Emergency (ER) | payer OTHER, SELFPAY ==
[2025-01-13 19:02] VITALS: BP 129/63; PULSE 87; RESP 16; TEMP 36.9; O2SAT 95
--- NOTE | 2025-01-13 19:14 | ED_ITS ---
HPI - General Adult General Chief complaint: Skin/Abscess/Foreign Body Stated complaint: lump on top of head Source: patient Mode of arrival: ambulatory Limitations: no limitations History of Present Illness HPI narrative: Patient presents for evaluation of left lower dental pain. Symptom onset last night. Pain is constant, throbbing, 7/10 in severity. She indicates she went to the emergency department 3 weeks ago for similar symptoms. She was given antibiotics. Symptoms improved. She has an appointment with her dentist tomorrow. She tried taking tylenol and ibuprofen without much improvement. She does not smoke. Related Data Home Medications ?Medication ?Instructions ?Recorded ?Confirmed ?Last Taken ?Type bupropion HCl 150 mg 24 hr tablet, 150 mg PO BID 12/21/22 07/03/24 Unknown History extended release clonidine HCl 0.3 mg tablet 0.3 mg PO DAILY 12/21/22 07/03/24 Unknown History lamotrigine 100 mg tablet 100 mg PO DAILY 12/21/22 07/03/24 Unknown History trazodone 150 mg tablet 150 mg PO QHS PRN Insomnia 12/21/22 07/03/24 Unknown History clonazepam 0.5 mg tablet 0.5 mg PO BID PRN Anxiety 01/25/23 07/03/24 Unknown History etonogestrel 0.12 mg-ethinyl 1 vag ring vaginal MONTHLY 01/25/23 07/03/24 Unknown History estradiol 0.015 mg/24 hr vaginal ring (NuvaRing) methadone 40 mg soluble tablet 82 mg PO DAILY 01/25/23 07/03/24 Unknown History alprazolam 0.5 mg tablet mg 12/29/24 Unknown History Allergies Allergy/AdvReac Type Severity Reaction Status Date / Time Sulfa (Sulfonamide Allergy Mild rash Verified 01/13/25 19:13 Antibiotics) Review of Systems Review of Systems: CONSTITUTIONAL: Denies fever, chills, or sweats. EYES: Denies visual changes, redness, or discharge. ENT: Reports left lower dental pain. Denies rhinorrhea, congestion, sore throat, or otalgia. CARDIOVASCULAR: Denies chest pain, palpitations, or edema. RESPIRATORY: Denies cough or dyspnea. GASTROINTESTINAL: Denies abdominal pain, nausea, vomiting, or diarrhea. GENITOURINARY: Denies dysuria or hematuria. SKIN: Denies rash or itching. MUSCULOSKELETAL: Denies back pain, joint pain, or myalgia. NEUROLOGIC: Denies headache, numbness, dizziness, or weakness. PSYCHIATRIC: Denies anxiety or depression. [facility] Past Medical History Medical History Marijuana abuse History of methamphetamine abuse Methadone dependence Hepatitis C antibody positive in blood Diarrhea Weight loss Nausea and vomiting Abdominal pain, chronic, epigastric Surgical History Surgical History No pertinent past surgical history Family History Family History Mother Family history non-contributory Social History Social History (Updated 01/13/25 @ 19:15 by Ángel Rizo [facility], ) Smoking packs per day: 0.5 Smoking cigarettes per day: 10.0 Years smoked: 15 Smoking pack-years: 7.50 Smoking status: Former smoker Tobacco type: cigarettes Substance use: former Substance use type: marijuana and methamphetamine Last use: daily Living arrangements: with family Exam Narrative: GENERAL: Well-appearing, well-nourished, and in no acute distress. HEAD: Normocephalic, atraumatic. EYES: PERRLA and EOMI. ENT: Nares clear, no rhinorrhea or epistaxis. Mucous membranes moist. Oropharynx without tonsillar hypertrophy exudate or other lesions. There is erosion of the gumline surrounding tooth #18. There is no visible or palpable abscess. TMs pearly hale nonbulging NECK: Supple. No adenopathy or masses. No carotid bruits or JVD CHEST: Clear to auscultation. No respiratory distress. No wheezes rales or rhonchi HEART: Regular rate and rhythm. No murmur heard. Normal peripheral pulses. ABDOMEN: Soft, nontender, nondistended, normal active bowel sounds. EXTREMITIES: Normal range of motion. No edema. SKIN: Warm, dry, no rash. NEURO: No focal deficits. Alert and oriented x3. PSYCH: Normal mood and affect. Course Course Emergency Course: This is a 34-year-old female who presented for evaluation of left lower dental pain. Will discharge with penicillin and meloxicam. Keep appointment with dentist tomorrow. Go to the ER for worsening symptoms. Patient in agreement with plan of care Level of Care: Express Care Visit Vital Signs Vital signs: Vital Signs Temperature 36.9 C 01/13/25 19:02 Pulse Rate 87 01/13/25 19:02 Respiratory Rate 16 01/13/25 19:02 Blood Pressure 129/63 01/13/25 19:02 Pulse Oximetry 95 01/13/25 19:02 Oxygen Delivery Room Air 01/13/25 19:02 Temperature 36.9 C 01/13/25 19:02 Pulse Rate 87 01/13/25 19:02 Respiratory Rate 16 01/13/25 19:02 Blood Pressure 129/63 01/13/25 19:02 Pulse Oximetry 95 01/13/25 19:02 Oxygen Delivery Room Air 01/13/25 19:02 Medical Decision Making Vital Signs Vital Signs: Vital Signs Temperature 36.9 C 01/13/25 19:02 Pulse Rate 87 01/13/25 19:02 Respiratory Rate 16 01/13/25 19:02 Blood Pressure 129/63 01/13/25 19:02 Pulse Oximetry 95 01/13/25 19:02 Oxygen Delivery Room Air 01/13/25 19:02 Temperature 36.9 C 01/13/25 19:02 Pulse Rate 87 01/13/25 19:02 Respiratory Rate 16 01/13/25 19:02 Blood Pressure 129/63 01/13/25 19:02 Pulse Oximetry 95 01/13/25 19:02 Oxygen Delivery Room Air 01/13/25 19:02 Discharge Plan Discharge Clinical Impression: Pain, dental Patient Disposition: Home Condition: Stable Instructions: Antibiotic Form, Toothache (ED) Additional Instructions: Please keep appointment with dentist tomorrow Do not take other NSAIDS with meloxicam Patient Language: Japanese Prescriptions: New penicillin V potassium 500 mg tablet 500 mg PO Q6H 10 Days Qty: 40 0RF meloxicam 15 mg tablet 15 mg PO DAILY PRN (Reason: pain) Qty: 10 0RF No Action alprazolam 0.5 mg tablet triamcinolone acetonide 0.1 % cream 1 applic topical BID 7 Days Qty: 15 0RF mupirocin calcium 2 % cream 1 applic topical BID 7 Days Qty: 30 0RF trazodone 150 mg tablet 150 mg PO QHS PRN (Reason: Insomnia) bupropion HCl 150 mg tablet extended release 24 hr 150 mg PO BID lamotrigine 100 mg tablet 100 mg PO DAILY clonidine HCl 0.3 mg tablet 0.3 mg PO DAILY clonazepam 0.5 mg tablet 0.5 mg PO BID PRN (Reason: Anxiety) methadone 40 mg Tablet,Soluble 82 mg PO DAILY etonogestrel-ethinyl estradiol [NuvaRing] 0.12-0.015 mg/24 hr Ring 1 vag ring VAGINAL MONTHLY ondansetron 4 mg tablet,disintegrating 4 mg PO Q8H PRN (Reason: nausea and vomiting) Qty: 15 0RF Follow-up/Referrals: Ddee,Jennifer Herman MD [Primary Care Provider] - Time of Disposition: 19:12
--- NOTE | 2025-01-13 19:47 | ED_ITS ---
HPI - General Adult General Chief complaint: Skin/Abscess/Foreign Body Stated complaint: lump on top of head Source: patient Mode of arrival: ambulatory Limitations: no limitations History of Present Illness HPI narrative: Patient presents for evaluation of which she believes to be a bump to the frontal aspect of her scalp. She first noticed it about three days ago. There is no associated redness or drainage. She has a mild ache in the affected area. She is wondering if it is related to bring her hair up in a ponytail. She has not taken any medication to assist with her symptoms. Related Data Home Medications ?Medication ?Instructions ?Recorded ?Confirmed ?Last Taken ?Type bupropion HCl 150 mg 24 hr tablet, 150 mg PO BID 12/21/22 07/03/24 Unknown History extended release clonidine HCl 0.3 mg tablet 0.3 mg PO DAILY 12/21/22 07/03/24 Unknown History lamotrigine 100 mg tablet 100 mg PO DAILY 12/21/22 07/03/24 Unknown History trazodone 150 mg tablet 150 mg PO QHS PRN Insomnia 12/21/22 01/13/25 Unknown History clonazepam 0.5 mg tablet 0.5 mg PO BID PRN Anxiety 01/25/23 07/03/24 Unknown History etonogestrel 0.12 mg-ethinyl 1 vag ring vaginal MONTHLY 01/25/23 07/03/24 Unknown History estradiol 0.015 mg/24 hr vaginal ring (NuvaRing) methadone 40 mg soluble tablet 82 mg PO DAILY 01/25/23 07/03/24 Unknown History alprazolam 0.5 mg tablet mg 12/29/24 Unknown History Allergies Allergy/AdvReac Type Severity Reaction Status Date / Time Sulfa (Sulfonamide Allergy Mild rash Verified 01/13/25 19:13 Antibiotics) Review of Systems Review of Systems: CONSTITUTIONAL: Denies fever, chills, or sweats. EYES: Denies visual changes, redness, or discharge. ENT: Denies rhinorrhea, congestion, sore throat, or otalgia. CARDIOVASCULAR: Denies chest pain, palpitations, or edema. RESPIRATORY: Denies cough or dyspnea. GASTROINTESTINAL: Denies abdominal pain, nausea, vomiting, or diarrhea. GENITOURINARY: Denies dysuria or hematuria. SKIN: Reports a bump to the frontal aspect of her scalp. Denies rash or itching. MUSCULOSKELETAL: Reports a dull ache to frontal aspect of her scalp. Denies back pain, joint pain, or myalgia. NEUROLOGIC: Denies headache, numbness, dizziness, or weakness. PSYCHIATRIC: Denies anxiety or depression. [facility] Past Medical History Medical History Marijuana abuse History of methamphetamine abuse Methadone dependence Hepatitis C antibody positive in blood Diarrhea Weight loss Nausea and vomiting Abdominal pain, chronic, epigastric Surgical History Surgical History No pertinent past surgical history Family History Family History Mother Family history non-contributory Social History Social History Smoking packs per day: 0.5 Smoking cigarettes per day: 10.0 Years smoked: 15 Smoking pack-years: 7.50 Smoking status: Former smoker Tobacco type: cigarettes Substance use: former Substance use type: marijuana and methamphetamine Last use: daily Living arrangements: with family Exam Narrative: GENERAL: Well-appearing, well-nourished, and in no acute distress. HEAD: Normocephalic, atraumatic. There normal variants noted to the scalp without any obvious masses or lesions EYES: PERRLA and EOMI. ENT: Nares clear, no rhinorrhea or epistaxis. Mucous membranes moist. Oropharynx without tonsillar hypertrophy exudate or other lesions. Bilateral TMs pearly hale nonbulging NECK: Supple. No adenopathy or masses. No carotid bruits or JVD CHEST: Clear to auscultation. No respiratory distress. No wheezes rales or rhonchi HEART: Regular rate and rhythm. No murmur heard. Normal peripheral pulses. ABDOMEN: Soft, nontender, nondistended, normal active bowel sounds. EXTREMITIES: Normal range of motion. No edema. SKIN: Warm, dry, no rash. NEURO: No focal deficits. Alert and oriented x3. PSYCH: Normal mood and affect. Course Course Emergency Course: This is a 34-year-old female who presented for evaluation of what she believes to be a bump to her scalp. Her physical exam for me is normal. I advised that this is a normal variant to her skull. There is no evidence of infection or mass. She was provided with reassurance. She should follow-up with her primary care provider as needed. Go to the ER for any change in neurological status or other concerning symptoms. Level of Care: Express Care Visit Vital Signs Vital signs: Vital Signs Temperature 36.9 C 01/13/25 19:02 Pulse Rate 87 01/13/25 19:02 Respiratory Rate 16 01/13/25 19:02 Blood Pressure 129/63 01/13/25 19:02 Pulse Oximetry 95 01/13/25 19:02 Oxygen Delivery Room Air 01/13/25 19:02 Temperature 36.9 C 01/13/25 19:02 Pulse Rate 87 01/13/25 19:02 Respiratory Rate 16 01/13/25 19:02 Blood Pressure 129/63 01/13/25 19:02 Pulse Oximetry 95 01/13/25 19:02 Oxygen Delivery Room Air 01/13/25 19:02 Medical Decision Making Vital Signs Vital Signs: Vital Signs Temperature 36.9 C 01/13/25 19:02 Pulse Rate 87 01/13/25 19:02 Respiratory Rate 16 01/13/25 19:02 Blood Pressure 129/63 01/13/25 19:02 Pulse Oximetry 95 01/13/25 19:02 Oxygen Delivery Room Air 01/13/25 19:02 Temperature 36.9 C 01/13/25 19:02 Pulse Rate 87 01/13/25 19:02 Respiratory Rate 16 01/13/25 19:02 Blood Pressure 129/63 01/13/25 19:02 Pulse Oximetry 95 01/13/25 19:02 Oxygen Delivery Room Air 01/13/25 19:02 Discharge Plan Discharge Clinical Impression: Encounter for medical screening examination Patient Disposition: Home Condition: Stable Instructions: Normal Exam (ED) Patient Language: Congolese Prescriptions: No Action alprazolam 0.5 mg tablet triamcinolone acetonide 0.1 % cream 1 applic topical BID 7 Days Qty: 15 0RF mupirocin calcium 2 % cream 1 applic topical BID 7 Days Qty: 30 0RF trazodone 150 mg tablet 150 mg PO QHS PRN (Reason: Insomnia) bupropion HCl 150 mg tablet extended release 24 hr 150 mg PO BID lamotrigine 100 mg tablet 100 mg PO DAILY clonidine HCl 0.3 mg tablet 0.3 mg PO DAILY clonazepam 0.5 mg tablet 0.5 mg PO BID PRN (Reason: Anxiety) methadone 40 mg Tablet,Soluble 82 mg PO DAILY etonogestrel-ethinyl estradiol [NuvaRing] 0.12-0.015 mg/24 hr Ring 1 vag ring VAGINAL MONTHLY ondansetron 4 mg tablet,disintegrating 4 mg PO Q8H PRN (Reason: nausea and vomiting) Qty: 15 0RF Follow-up/Referrals: Dede,Jennifer Herman MD [Primary Care Provider] - Time of Disposition: 19:12
== END 2025-01-13 19:52 | disposition home or self-care (01) ==
PROVIDERS: Emergency Provider Nurse Practitioner; PCP Family Medicine
DX: R22.0 Localized swelling, mass and lump, head (principal); Z79.899 Other long term (current) drug therapy; Z87.891 Personal history of nicotine dependence
CPT/HCPCS: 99213; G0463

== ENCOUNTER 2025-01-25 19:26 | Emergency (ER) | payer OTHER, SELFPAY ==
[2025-01-25 19:31] VITALS: BP 106/64; PULSE 79; RESP 18; TEMP 37.1; O2SAT 96
--- NOTE | 2025-01-25 19:53 | ED.SKABFB ---
HPI - Skin/Abscess/Foreign Bdy General Chief complaint: Dental/Oral Stated complaint: lump on lip Time Seen by Provider: 01/25/25 19:40 Source: patient and RN notes reviewed Mode of arrival: ambulatory Limitations: no limitations History of Present Illness HPI narrative: Patient presents today complaining of localized swelling to her midline lower lip since yesterday. Denies injury or trauma. No OTC treatment prior to arrival. States she just finished an antibiotic for an abscess of her gumline and wanted to make sure that she was not developing an additional abscess of her lip. Reports history of cold sores in the past. Describes the pain as burning, but only when prompted. Related Data Home Medications ?Medication ?Instructions ?Recorded ?Confirmed ?Last Taken ?Type bupropion HCl 150 mg 24 hr tablet, 150 mg PO BID 12/21/22 07/03/24 Unknown History extended release clonidine HCl 0.3 mg tablet 0.3 mg PO DAILY 12/21/22 07/03/24 Unknown History lamotrigine 100 mg tablet 100 mg PO DAILY 12/21/22 07/03/24 Unknown History trazodone 150 mg tablet 150 mg PO QHS PRN Insomnia 12/21/22 01/13/25 Unknown History clonazepam 0.5 mg tablet 0.5 mg PO BID PRN Anxiety 01/25/23 07/03/24 Unknown History etonogestrel 0.12 mg-ethinyl 1 vag ring vaginal MONTHLY 01/25/23 07/03/24 Unknown History estradiol 0.015 mg/24 hr vaginal ring (NuvaRing) methadone 40 mg soluble tablet 82 mg PO DAILY 01/25/23 07/03/24 Unknown History alprazolam 0.5 mg tablet mg 12/29/24 Unknown History Allergies Allergy/AdvReac Type Severity Reaction Status Date / Time Sulfa (Sulfonamide Allergy Mild rash Verified 01/25/25 19:28 Antibiotics) [facility] Past Medical History Medical History Marijuana abuse History of methamphetamine abuse Methadone dependence Hepatitis C antibody positive in blood Diarrhea Weight loss Nausea and vomiting Abdominal pain, chronic, epigastric Surgical History Surgical History No pertinent past surgical history Family History Family History Mother Family history non-contributory Social History Social History Smoking packs per day: 0.5 Smoking cigarettes per day: 10.0 Years smoked: 15 Smoking pack-years: 7.50 Smoking status: Former smoker Tobacco type: cigarettes Substance use: former Substance use type: marijuana and methamphetamine Last use: daily Living arrangements: with family Comments At time of signature, I have reviewed and agree with nursing past medical, surgical, social and family history unless otherwise noted. Please see nursing chart for further information. There is no relevant family history pertinent to the presenting complaint Exam Narrative: GENERAL: Well-appearing, well-nourished, and in no acute distress. HEAD: Normocephalic, atraumatic. EYES: EOMI. No redness or drainage. Conjunctivae normal. ENT: Mucous membranes pink and moist. Midline lower lip has an area of faint localized swelling measuring approximately 5 mm with a superficial scab in the center and 2 white tiny, pinpoint dots towards the inner aspect. No obvious vesicles, erythema, drainage, ecchymosis. NECK: Normal AROM. CHEST: No respiratory distress. EXTREMITIES: Normal range of motion. No edema. SKIN: Warm, dry, no rash. Capillary refill normal. Normal skin turgor. NEURO: No focal deficits. Alert and oriented x3. Gait steady. PSYCH: Normal affect. No signs of depression or anxiety. Course Course Level of Care: Express Care Visit Vital Signs Vital signs: Vital Signs Temperature 98.7 F 01/25/25 19:31 Pulse Rate 79 01/25/25 19:31 Respiratory Rate 18 01/25/25 19:31 Blood Pressure 106/64 01/25/25 19:31 Pulse Oximetry 96 01/25/25 19:31 Oxygen Delivery Room Air 01/25/25 19:31 Temperature 98.7 F 01/25/25 19:31 Pulse Rate 79 01/25/25 19:31 Respiratory Rate 18 01/25/25 19:31 Blood Pressure 106/64 01/25/25 19:31 Pulse Oximetry 96 01/25/25 19:31 Oxygen Delivery Room Air 01/25/25 19:31 Reviewed MDM - Skin/Abscess/Foreign Bdy MDM Narrative Medical decision making narrative: 35-year-old female patient presents today with a painful, ?lump? to the midline lower lip since yesterday without history of injury or trauma. Patient recently finished antibiotics for gingival abscess and wanted to make sure she did not have an active infection. Reports history of HSV. Upon exam, patient localized raised area measuring approximately 0.5 mm without erythema, fluctuance, vesicles. Patient is frequently scratching and rubbing the area with her acrylic fingernail. Discussed with patient that if she feels that this lesion is consistent with previous HSV lesions, prescription for valtrex can be sent to pharmacy. Lesion does not appear to be bacterial in nature. If it does not sock turner to be HSV in etiology, this lesion will likely resolve on its own as long as patient leaves it alone. Vital signs stable. Patient agrees with plan. Anticipatory guidance given. Differential Diagnosis Differential diagnosis: Likely abscess of skin or subcutaneous tissue and other (Injury, herpes simplex) Critical Care Time Critical Care Time Critical Care Time: No Discharge Plan Discharge Clinical Impression: Lip pain Patient Disposition: Home Condition: Stable Additional Instructions: Take the valacyclovir prescribed. Try not to bite on your lip or scratch it as this can irritate it further. Follow-up with your PCP if symptoms worsen or persist. Patient Language: Indonesian Prescriptions: New valacyclovir 1 gram tablet 2,000 mg PO BID 1 Days Qty: 4 0RF No Action alprazolam 0.5 mg tablet triamcinolone acetonide 0.1 % cream 1 applic topical BID 7 Days Qty: 15 0RF mupirocin calcium 2 % cream 1 applic topical BID 7 Days Qty: 30 0RF trazodone 150 mg tablet 150 mg PO QHS PRN (Reason: Insomnia) bupropion HCl 150 mg tablet extended release 24 hr 150 mg PO BID lamotrigine 100 mg tablet 100 mg PO DAILY clonidine HCl 0.3 mg tablet 0.3 mg PO DAILY clonazepam 0.5 mg tablet 0.5 mg PO BID PRN (Reason: Anxiety) methadone 40 mg Tablet,Soluble 82 mg PO DAILY etonogestrel-ethinyl estradiol [NuvaRing] 0.12-0.015 mg/24 hr Ring 1 vag ring VAGINAL MONTHLY ondansetron 4 mg tablet,disintegrating 4 mg PO Q8H PRN (Reason: nausea and vomiting) Qty: 15 0RF Follow-up/Referrals: Dede,Jennifer Herman MD [Primary Care Provider] Time of Disposition: 19:53
== END 2025-01-25 19:54 | disposition home or self-care (01) ==
PROVIDERS: Emergency Provider Nurse Practitioner; PCP Family Medicine
DX: K13.0 Diseases of lips (principal); Z87.891 Personal history of nicotine dependence
CPT/HCPCS: 99213; G0463

== ENCOUNTER 2025-02-10 19:35 | Emergency (ER) | payer OTHER, SELFPAY ==
[2025-02-10 19:42] VITALS: BP 138/103; PULSE 110; RESP 20; TEMP 37.6; O2SAT 97
--- NOTE | 2025-02-10 19:52 | ED_ITS ---
HPI - General Adult General Chief complaint: Skin/Abscess/Foreign Body Stated complaint: forehead lump, forehead pain, foot/leg pain Time Seen by Provider: 02/10/25 19:50 Source: patient and RN notes reviewed Mode of arrival: ambulatory Limitations: dementia History of Present Illness HPI narrative: 35-year-old female presents with concern for pain on her forehead between her eyebrows. Reports it feels swollen. She denies drainage. She reports she recently had her eyebrows waxed. She denies fever, aches, chills, sweats. Separate complaints she reports a bruise to the top of her left foot from dropping soda on it. She denies musculoskeletal pain MD complaint: Cellulitis Related Data Home Medications ?Medication ?Instructions ?Recorded ?Confirmed ?Last Taken ?Type bupropion HCl 150 mg 24 hr tablet, 150 mg PO BID 12/2107/03/24 Unknown History extended release clonidine HCl 0.3 mg tablet 0.3 mg PO DAILY 12/21/22 0 07/03/24 Unknown History lamotrigine 100 mg tablet 100 mg PO DAILY 12/21/22 Unknown History trazodone 150 mg tablet 150 mg PO QHS PRN Insomnia 0 12/21/22 01/13/25 Unknown History clonazepam 0.5 mg tablet 0.5 mg PO BID PRN Anxiety 07/03/24 Unknown History etonogestrel 0.12 mg-ethinyl 1 vag ring vaginal MONTHL Y 01/25/23 07/03/24 Unknown History estradiol 0.015 mg/24 hr vaginal ring (NuvaRing) methadone 40 mg soluble tablet 82 mg PO DAILY 01/25/23 07/03/24 Unknown History alprazolam 0.5 mg tablet mg 12/29/24 Unknown History Allergies Allergy/AdvReac Type Severity Reaction Status Date / Time Sulfa (Sulfonamide Allergy Mild rash Verified 02/10/25 19:53 Antibiotics) Review of Systems Review of Systems: CONSTITUTIONAL: Denies malaise, chills, sweats, or fever. EYES: Denies redness, or discharge. ENT: Denies rhinorrhea, congestion, swollen lips, swollen tongue CARDIOVASCULAR: Denies chest pain, palpitations, or edema. RESPIRATORY: Denies cough or dyspnea. GASTROINTESTINAL: Denies abdominal pain, nausea, vomiting SKIN: Reports redness, swelling between her eyebrows. Denies purulent drainage, vesicles, bullae, numbness, pain beyond proportion MUSCULOSKELETAL: Denies joint pain or myalgia. Reports bruising of the left foot NEUROLOGIC: Denies headache. All systems reviewed & are unremarkable except as noted in HPI and below PMFSH Past Medical History Medical History Marijuana abuse History of methamphetamine abuse Methadone dependence Hepatitis C antibody positive in blood Diarrhea Weight loss Nausea and vomiting Abdominal pain, chronic, epigastric Surgical History Surgical History No pertinent past surgical history Family History Family History Mother Family history non-contributory Social History Social History Smoking packs per day: 0.5 Smoking cigarettes per day: 10.0 Years smoked: 15 Smoking pack-years: 7.50 Smoking status: Former smoker Tobacco type: cigarettes Substance use: former Substance use type: marijuana and methamphetamine Last use: daily Living arrangements: with family Comments At time of signature, agree with nursing past medical, surgical, social and family history. There is no relevant family history pertinent to the presenting complaint Exam Narrative: GENERAL: Well-appearing, well-nourished, and in no acute distress. HEAD: Normocephalic, atraumatic. EYES: PERRLA, conjunctivae clear ENT: Mucous membranes moist. NECK: Supple. No lymphadenopathy CHEST: Clear to auscultation. No respiratory distress. HEART: Regular rate and rhythm. SKIN: Warm, dry. Mild Erythema, induration, tenderness, warmth with sharp margins noted between the eyebrows. No vesicles, bullae, necrosis, ecchymosis, crepitus noted. Ecchymosis noted to the left foot MUSC: No skeletal tenderness to the left foot upon palpation NEURO: Alert and oriented x3. PSYCH: Normal mood and affect Course Course Emergency Course: Patient is aware of diagnosis, understands and agrees to treatment plan. Anticipatory guidance given. Patient agrees to follow-up as directed and is aware of reasons to seek care at the emergency department. Portions of this record may have been created with voice recognition software Level of Care: [facility] Visit Vital Signs Vital signs: Vital Signs Temperature 99.6 F 02/10/25 19:42 Pulse Rate 110 H 02/10/25 19:42 Respiratory Rate 20 02/10/25 19:42 Blood Pressure 138/103 H 02/10/25 19:42 Pulse Oximetry 97 02/10/25 19:42 Oxygen Delivery Room Air 02/10/25 19:42 Temperature 99.6 F 02/10/25 19:42 Pulse Rate 110 H 02/10/25 19:42 Respiratory Rate 20 02/10/25 19:42 Blood Pressure 138/103 H 02/10/25 19:42 Pulse Oximetry 97 02/10/25 19:42 Oxygen Delivery Room Air 02/10/25 19:42 Reviewed. Medical Decision Making MDM Narrative Medical decision making narrative: I evaluated [facility]. History is obtained from patient who is an independent historian and physical exam was performed.? Available medical records were reviewed. ? Exam findings and relevant testing show no acute concerns or changes; patient is non-toxic appearing and is in no distress. Does not appear at this time to be erythema multiforme, bullous, SJS, TEN; no evidence at this time to suggest RMSF, NSTI, endocarditis or Lyme disease; patient looks well, nontoxic and is tolerating oral intake; no neurologic signs or symptoms; no headache, photophobia or neck pain; afebrile.? Patient does not have history of of penetrating trauma, laceration, blunt trauma, recent surgery, immunosuppression, malignancy, obesity, alcoholism, corticosteroid use.? Discussed the importance of follow-up, patient agrees; question, cellulitis versus necrotizing soft tissue infection versus abscess.?? Patient is appropriate for outpatient treatment and follow-up. Vital Signs Vital Signs: Vital Signs Temperature 99.6 F 02/10/25 19:42 Pulse Rate 110 H 02/10/25 19:42 Respiratory Rate 20 02/10/25 19:42 Blood Pressure 138/103 H 02/10/25 19:42 Pulse Oximetry 97 02/10/25 19:42 Oxygen Delivery Room Air 02/10/25 19:42 Temperature 99.6 F 02/10/25 19:42 Pulse Rate 110 H 02/10/25 19:42 Respiratory Rate 20 02/10/25 19:42 Blood Pressure 138/103 H 02/10/25 19:42 Pulse Oximetry 97 02/10/25 19:42 Oxygen Delivery Room Air 02/10/25 19:42 Critical Care Time Critical Care Time Critical Care Time: No Discharge Plan Discharge Clinical Impression: Cellulitis, Contusion of foot Patient Disposition: Home Condition: Stable Instructions: Antibiotic Form, Cellulitis (ED) Additional Instructions: Please follow up with your Primary Care Doctor within 48-72 hours - call for an appointment. Rest and elevate affected area; apply moist heat 3-4 times daily for 10-15 minutes. Take Motrin 600mg every 8 hours with food for pain. Please take Antibiotics as directed. If you experience any worsening redness, swelling, streaking (red lines), fever or chills please go to the ER Patient Language: Yakut Prescriptions: New amoxicillin 875 mg tablet 875 mg PO Q12H 10 Days Qty: 20 0RF No Action alprazolam 0.5 mg tablet mupirocin calcium 2 % cream 1 applic topical BID 7 Days Qty: 30 0RF trazodone 150 mg tablet 150 mg PO QHS PRN (Reason: Insomnia) bupropion HCl 150 mg tablet extended release 24 hr 150 mg PO BID lamotrigine 100 mg tablet 100 mg PO DAILY clonidine HCl 0.3 mg tablet 0.3 mg PO DAILY clonazepam 0.5 mg tablet 0.5 mg PO BID PRN (Reason: Anxiety) methadone 40 mg Tablet,Soluble 82 mg PO DAILY etonogestrel-ethinyl estradiol [NuvaRing] 0.12-0.015 mg/24 hr Ring 1 vag ring VAGINAL MONTHLY Follow-up/Referrals: Nam,Nohelia Ramsay NP [Primary Care Provider, Unknown] Time of Disposition: 19:59
== END 2025-02-10 20:05 | disposition home or self-care (01) ==
PROVIDERS: Emergency Provider Nurse Practitioner; PCP Nurse Practitioner Family
DX: L03.211 Cellulitis of face (principal); S90.32XA Contusion of left foot, initial encounter; W20.8XXA Other cause of strike by thrown, projected or falling object, initial encounter; Z87.891 Personal history of nicotine dependence
CPT/HCPCS: 99213; G0463

== ENCOUNTER 2025-03-06 15:10 | Emergency (ER) | payer OTHER, SELFPAY ==
[2025-03-06 15:18] VITALS: BP 93/80; PULSE 90; RESP 16; TEMP 37.2; O2SAT 98
--- NOTE | 2025-03-06 15:36 | ED.GENADULT ---
HPI - General Adult General Chief complaint: Skin/Abscess/Foreign Body Stated complaint: Nose Irritation Time Seen by Provider: 03/06/25 15:36 Source: patient, RN notes reviewed and old records reviewed Mode of arrival: ambulatory Limitations: no limitations History of Present Illness HPI narrative: 35-year-old female presents to the [facility] with 4 days of right nostril discomfort the symptoms side. Reports that she thought it was a pimple but is not going away. No treatment prior to arrival. Onset (ago): day(s) (4) Treatments prior to arrival: none Related Data Home Medications ?Medication ?Instructions ?Recorded ?Confirmed ?Last Taken ?Type bupropion HCl 150 mg 24 hr tablet, 150 mg PO BID 12/21/22 07/03/24 Unknown History extended release clonidine HCl 0.3 mg tablet 0.3 mg PO DAILY 12/21/22 07/03/24 Unknown History lamotrigine 100 mg tablet 100 mg PO DAILY 12/21/22 07/03/24 Unknown History trazodone 150 mg tablet 150 mg PO QHS PRN Insomnia 12/21/22 01/13/25 Unknown History clonazepam 0.5 mg tablet 0.5 mg PO BID PRN Anxiety 01/25/23 07/03/24 Unknown History etonogestrel 0.12 mg-ethinyl 1 vag ring vaginal MONTHLY 01/25/23 07/03/24 Unknown History estradiol 0.015 mg/24 hr vaginal ring (NuvaRing) methadone 40 mg soluble tablet 82 mg PO DAILY 01/25/23 07/03/24 Unknown History alprazolam 0.5 mg tablet mg 12/29/24 Unknown History Allergies Allergy/AdvReac Type Severity Reaction Status Date / Time Sulfa (Sulfonamide Allergy Mild rash Verified 02/10/25 19:53 Antibiotics) Review of Systems Review of Systems: All systems reviewed & are unremarkable except as noted in HPI and below Constitutional: Constitutional: Reports no additional constitutional complaints ENT: Reports as per HPI Cardiovascular: Cardiovascular: Reports no additional cardiovascular complaints, Denies chest pain and Denies dyspnea Respiratory: Respiratory: Reports no additional respiratory complaints, Denies chest congestion, Denies cough and Denies dyspnea Musculoskeletal: Musculoskeletal: Reports no additional musculoskeletal complaints Integumentary/Breasts: Skin/Breast: Reports system reviewed and no additional complaints, except as docu PMFSH Past Medical History Medical History Marijuana abuse History of methamphetamine abuse Methadone dependence Hepatitis C antibody positive in blood Diarrhea Weight loss Nausea and vomiting Abdominal pain, chronic, epigastric Surgical History Surgical History No pertinent past surgical history Family History Family History Mother Family history non-contributory Social History Social History Smoking packs per day: 0.5 Smoking cigarettes per day: 10.0 Years smoked: 15 Smoking pack-years: 7.50 Smoking status: Former smoker Tobacco type: cigarettes Substance use: former Substance use type: marijuana and methamphetamine Last use: daily Living arrangements: with family Comments At the time of my signature, I reviewed and agree with the nursing past medical, surgical, social, and family history. There is no relevant family history pertinent to the patient complaint. Exam Const: General: cooperative, healthy appearing, comfortable, no acute distress, well developed, alert and well nourished Nutritional Appearance: well nourished Orientation/consciousness: patient oriented x3 Limitations: no limitations HENMT: Head: normal to inspection Ears: hearing grossly normal bilaterally and external ears normal Face/Nose/Sinus: no nasal discharge noted, normal facial exam, sinuses nontender, face symmetric and Other nasal findings present (Right nostril, 1 small raised area, pimple with surrounding edema, ) Mouth: Yes Normal oral and palatal mucosa present, Yes lip normal, Yes tongue normal and Yes moist mucous membranes Throat: posterior oropharynx normal, uvula midline and no uvular edema Eyes: General: appearance normal, both eyes and all related structures Alignment and Position: alignment normal Neck: Neck: normal visual inspection, full ROM, no lymphadenopathy and no meningeal signs Chest: Chest palpation & inspection: normal inspection of the chest Resp: Effort & Inspection: normal respiratory effort and able to speak in complete sentences Auscultation: clear to auscultation bilaterally, no crackles, no rales, no rhonchi and no wheezes Cardio: Rate: regular rate Skin: General skin exam: normal color and no rashes or lesions noted Neuro: General: patient oriented x3, gait normal, moves all extremities and no meningeal signs Cognition (Neuro): normal cognition Speech: normal speech Gait exam (Neuro): Normal gait present Extrem: General: normal to inspection, full ROM, capillary refill normal and normal gait Psych: Appearance: grossly normal and well kempt Mental Status: mental status grossly normal Speech and movement: Normal speech and movement present and Clear speech present Affect: normal affect Attitude: cooperative Course Course Level of Care: Express Care Visit Vital Signs Vital signs: Vital Signs Temperature 98.9 F 03/06/25 15:18 Pulse Rate 90 03/06/25 15:18 Respiratory Rate 16 03/06/25 15:18 Blood Pressure 93/80 L 03/06/25 15:18 Pulse Oximetry 98 03/06/25 15:18 Oxygen Delivery Room Air 03/06/25 15:18 Temperature 98.9 F 03/06/25 15:18 Pulse Rate 90 03/06/25 15:18 Respiratory Rate 16 03/06/25 15:18 Blood Pressure 93/80 L 03/06/25 15:18 Pulse Oximetry 98 03/06/25 15:18 Oxygen Delivery Room Air 03/06/25 15:18 Reviewed Medical Decision Making MDM Narrative Medical decision making narrative: Patient sitting in exam room. Patient presents with painful right nostril. Small pimple with mild surrounding edema. Patient given Bactroban. Patient appropriate for outpatient treatment with close follow-up Discharge instructions reviewed with patient, as well as provided in writing per nursing staff. The instructions also include specific and strict return/GO TO THE ER as well as f/u information. All questions have been answered, and the patient deny any further questions with discharge and discharge plan. Some parts of this dictation were generated by voice recognition software and may contain typographical and/or grammatical inaccuracies. Differential Diagnosis Differential Diagnosis: Pimple, abscess, ingrown hair, impetigo, herpes Medical Records Medical records reviewed: Yes I reviewed the external patient's medical records. Vital Signs Vital Signs: Vital Signs Temperature 98.9 F 03/06/25 15:18 Pulse Rate 90 03/06/25 15:18 Respiratory Rate 16 03/06/25 15:18 Blood Pressure 93/80 L 03/06/25 15:18 Pulse Oximetry 98 03/06/25 15:18 Oxygen Delivery Room Air 10/03/25 15:18 Temperature 98.9 F 03/06/25 15:18 Pulse Rate 90 03/06/25 15:18 Respiratory Rate 16 03/06/25 15:18 Blood Pressure 93/80 L 03/06/25 15:18 Pulse Oximetry 98 03/06/25 15:18 Oxygen Delivery Room Air 03/06/25 15:18 Reviewed Lab Data Lab results reviewed: Yes I reviewed the patient's lab results. Labs: Reviewed Critical Care Time Critical Care Time Critical Care Time: No Discharge Plan Discharge Clinical Impression: Irritation of nose Patient Disposition: Home Condition: Stable Instructions: Antibiotic Form Additional Instructions: Apply warm compresses to the area every 2-3 hours for 15-20 minutes while awake. Apply scant amount of the ointment we prescribed with a Q-tip. Do not really use a Q-tip. Follow-up with your primary care provider if no improvement in 1 week If symptoms get worse such as significant swelling, redness please proceed to the emergency room Patient Language: Nicarag[place] Prescriptions: New mupirocin [Centany] 2 % ointment 1 applic topical TID 7 Days Qty: 15 0RF No Action alprazolam 0.5 mg tablet mupirocin calcium 2 % cream 1 applic topical BID 7 Days Qty: 30 0RF amoxicillin 875 mg tablet 875 mg PO Q12H 10 Days Qty: 20 0RF trazodone 150 mg tablet 150 mg PO QHS PRN (Reason: Insomnia) bupropion HCl 150 mg tablet extended release 24 hr 150 mg PO BID lamotrigine 100 mg tablet 100 mg PO DAILY clonidine HCl 0.3 mg tablet 0.3 mg PO DAILY clonazepam 0.5 mg tablet 0.5 mg PO BID PRN (Reason: Anxiety) methadone 40 mg Tablet,Soluble 82 mg PO DAILY etonogestrel-ethinyl estradiol [NuvaRing] 0.12-0.015 mg/24 hr Ring 1 vag ring VAGINAL MONTHLY Follow-up/Referrals: Nam,Nohelia Ramsay NP [Primary Care Provider, Unknown] - 1 Week Time of Disposition: 15:45
== END 2025-03-06 15:51 | disposition home or self-care (01) ==
PROVIDERS: Emergency Provider Nurse Practitioner; PCP Nurse Practitioner Family
DX: J34.89 Other specified disorders of nose and nasal sinuses (principal); Z87.891 Personal history of nicotine dependence
CPT/HCPCS: 99213; G0463